=== PATIENT | male | born 1985 | race Caucasian/White ===

== ENCOUNTER 2017-10-01 12:15 | Emergency (ER) | payer MEDICAID ==
[~2017-10-01] VITALS: Ht 177.8 cm; Wt 79.4 kg
[2017-10-01 12:41] VITALS: BP 125/85
[2017-10-01 13:19] LABS: Basophils # (auto) 0 uL; Basophils % (auto) 0.8 % (0.0-2.0); Eosinophils # (auto) 0.2 uL; Eosinophils % (auto) 2.6 % (0.0-7.0); Hematocrit 48.4 % (41.0-53.0); Hemoglobin 16.4 g/dL (13.5-17.5); Lymphocytes # (auto) 2.5 uL; Mean Corpuscular Hgb Conc. 33.9 g/dL (32.0-36.0); Mean Corpuscular Volume 100.2 fL (80.0-100.0); Mean Platelet Volume 8.7 fL (6.9-10.8); Monocytes # (auto) 0.5 uL; Monocytes % (auto) 8.9 % (0.0-12.0); Neutrophils # (auto) 2.7 uL; Neutrophils % (auto) 45.7 % (37.0-80.0); Nucleated Red Blood Cells % 0.1 %; Platelet Count (auto) 232 10^3/uL (140-450); Red Cell Distribution Width 13.3 % (11.8-14.3)
[2017-10-01 13:46] LABS: Urine RBC None Seen /hpf (0 - 3)
[2017-10-01 13:50] LABS: Albumin 4.5 g/dL (3.4-5.0); Alkaline Phosphatase 69 U/L (45-117); Anion Gap 8 (5-15); Aspartate Aminotransferase 77 U/L (15-37); Bilirubin, Total 0.3 mg/dL (0.2-1.0); Blood Urea Nitrogen 8 mg/dL (7-18); Calcium 8.5 mg/dL (8.5-10.1); Carbon Dioxide 26 mmol/L (21-32); Chloride 107 mmol/L (98-107); GFR African American 144 mL/min; GFR Non-African American 119 mL/min; Glucose 90 mg/dL (74-106); Magnesium 2.6 mg/dL (1.6-2.6); Potassium 3.9 mmol/L (3.5-5.1); Sodium 141 mmol/L (136-145)
[2017-10-01 14:15] LABS: Urine Bilirubin Negative (Negative); Urine Blood Negative /uL (Negative); Urine Color Colorless (Yellow); Urine Glucose Normal (Normal); Urine Ketone Negative (Negative); Urine Nitrite Negative (Negative); Urine Urobilinogen Normal (Negative)
== END 2017-10-01 14:12 | disposition left against medical advice (07) ==
LOC: ER 12:15 → EDUNIT# 12:15 → EDBD 12:15 → ER 14:12
DX: F10.10 Alcohol abuse, uncomplicated (principal); Z53.21 Procedure and treatment not carried out due to patient leaving prior to being seen by health care provider
CPT/HCPCS: 36415; 80053; 80307; 80320; 81001; 83735; 84484; 85025; 93005

== ENCOUNTER 2018-09-02 14:39 | Emergency (ER) | payer MEDICAID ==
[~2018-09-02] VITALS: Ht 188 cm; Wt 81.6 kg
[2018-09-02 14:52] VITALS: BP 119/83
== END 2018-09-02 15:00 | disposition left against medical advice (07) ==
LOC: ER 14:42
DX: S61.411A Laceration without foreign body of right hand, initial encounter (principal); Z53.21 Procedure and treatment not carried out due to patient leaving prior to being seen by health care provider; W22.8XXA Striking against or struck by other objects, initial encounter; Y93.89 Activity, other specified; Y99.8 Other external cause status; Y92.89 Other specified places as the place of occurrence of the external cause

== ENCOUNTER 2019-05-15 12:03 | Emergency (ER) | payer MEDICAID ==
[~2019-05-15] VITALS: Ht 188 cm; Wt 72.6 kg
[2019-05-15] MEDS ORDERED: SODIUM CHLORIDE 0.9% 1,000 ML IV ONE ×2 (12:18)
[2019-05-15] MEDS ORDERED: THIAMINE 100mg/ml INJ (200mg/2ml VIAL) IV ONE (12:30)
[2019-05-15] MEDS ORDERED: NICOTINE 21MG/24 HR TOPICAL PATCH TD ONE (14:00)
[2019-05-15 14:20] VITALS: BP 100/69
== END 2019-05-15 15:51 | disposition home or self-care (01) ==
LOC: ER 12:03
DX: E86.0 Dehydration (principal); F17.210 Nicotine dependence, cigarettes, uncomplicated; F12.90 Cannabis use, unspecified, uncomplicated; Z59.0 Homelessness
CPT/HCPCS: 70450; 96361; 96374; 99284; J3411; J7030

== ENCOUNTER 2022-11-30 22:28 | Emergency (ER) | payer MEDICAID ==
[~2022-11-30] VITALS: Ht 188 cm; Wt 73.0 kg
[2022-11-30] MEDS ORDERED: KETOROLAC TROMETH 60MG/2ML VIAL IM ONE (23:00)
[2022-11-30] MEDS ORDERED: TETANUS-DIPTH-ACEL PERTUSSIS 0.5ML SYR Tdap IM ONE (23:00)
[2022-12-01] MEDS ORDERED: IBUP800T27 PO (01:30)
[2022-12-01 03:08] VITALS: BP 116/82
== END 2022-12-01 03:10 | disposition home or self-care (01) ==
LOC: ER 22:28
DX: M54.16 Radiculopathy, lumbar region (principal); M54.12 Radiculopathy, cervical region; F17.210 Nicotine dependence, cigarettes, uncomplicated; Z59.00 Homelessness unspecified
CPT/HCPCS: 72040; 72100; 90471; 90715; 96372; 99284; J1885

== ENCOUNTER 2024-10-08 19:43 | Emergency (ER) | payer MEDICAID ==
[~2024-10-08] VITALS: Ht 185.4 cm; Wt 73.0 kg
[~2024-10-08 19:43] MED LIST: IBUP-1456 PO
[2024-10-08 19:52] VITALS: BP 123/86; PULSE 110; RESP 16; O2SAT 100
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
== END 2024-10-08 22:57 | disposition home or self-care (01) ==
LOC: ER 19:43 → EDBD 19:43 → ER 22:57
DX: F10.129 Alcohol abuse with intoxication, unspecified (principal); F14.10 Cocaine abuse, uncomplicated; F17.210 Nicotine dependence, cigarettes, uncomplicated; F15.90 Other stimulant use, unspecified, uncomplicated; Z79.1 Long term (current) use of non-steroidal anti-inflammatories (NSAID); Z79.899 Other long term (current) drug therapy; Z59.00 Homelessness unspecified; Y90.9 Presence of alcohol in blood, level not specified

== ENCOUNTER 2024-10-13 20:30 | Emergency (ER) | payer MEDICAID ==
[~2024-10-13] VITALS: Ht 185.4 cm; Wt 77.2 kg
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
[2024-10-13 22:01] LABS: Albumin 4.5 g/dL (3.2-4.8); Alkaline Phosphatase 106 U/L (46-116); Anion Gap 13 (5-15); Aspartate Aminotransferase 38 U/L (13-40); BUN/Creatinine Ratio 12.2 (10.0-20.0); Blood Alcohol 274.7 mg/dL (<10); Blood Urea Nitrogen 10 mg/dL (9-23); Calcium 9.8 mg/dL (8.7-10.4); Carbon Dioxide 22 mmol/L (20-31); Sodium 144 mmol/L (136-145); Total Protein 6.9 g/dL (5.7-8.2)
--- NOTE | 2024-10-13 22:01 | DVH ---
EXAM: XY CHEST XRAY 1 VIEW TECHNIQUE: Single frontal chest radiograph CLINICAL HISTORY: chest pain COMPARISON: None Findings/Impression: Frontal chest radiograph demonstrates no acute osseous or superficial soft tissue abnormalities. The trachea is midline. The cardiac silhouette and mediastinum are within normal limits. No pneumothorax, pleural effusions, or consolidations.
[2024-10-13 22:05] LABS: Alanine Aminotransferase 48 U/L (7-40); Bilirubin, Total 0.2 mg/dL (0.2-1.0); Chloride 109 mmol/L (98-107); Creatine Kinase IFCC 281 U/L (46-171); Glucose 113 mg/dL (74-106); Potassium 3.5 mmol/L (3.5-5.1)
[2024-10-13 22:13] LABS: Basophils # (auto) 0.1 10 ^3/uL (0-0.2); Basophils % (auto) 0.5 % (0.0-2.0); Eosinophils # (auto) 0.1 10 ^3/uL (0-0.8); Hematocrit 39.8 % (41.0-53.0); Hemoglobin 13.2 g/dL (13.5-17.5); Lymphocytes # (auto) 1.8 10 ^3/uL (0.4-5.4); Lymphocytes % (auto) 15.8 % (10.0-50.0); Mean Corpuscular Hemoglobin 32.5 pg (28.0-32.0); Mean Corpuscular Hgb Conc. 33.3 g/dL (32.0-36.0); Mean Corpuscular Volume 97.6 fL (80.0-100.0); Monocytes # (auto) 0.8 10 ^3/uL (0-1.3); Monocytes % (auto) 6.9 % (0.0-12.0); Neutrophils # (auto) 8.7 10 ^3/uL (1.6-8.6); Neutrophils % (auto) 75.8 % (37.0-80.0); Platelet Count (auto) 352 10^3/uL (140-450); Red Blood Cells 4.08 10^6/uL (4.5-5.90); Red Cell Distribution Width 15.1 % (11.8-14.3); White Blood Cell 11.4 10^3/uL (4.4-10.8)
[2024-10-13 23:52] VITALS: BP 111/70; PULSE 111; RESP 18; O2SAT 98
[2024-10-14 00:01] VITALS: TEMP 98.2
[2024-10-14] MEDS: IBUPROFEN 600 MG TAB PO ONE (00:01)
--- NOTE | 2024-10-14 04:12 | ECG ---
[facility] Test Date: 2024-10-13 Test Time: 20:34:39 Pat Name: OSWALDO SANTA Department: ED Room: Gender: M Body Man: : 1985 Requested By: BRETT WHITAKER Order Number: [id number] Reading MD: Steve Anderson Measurements Intervals [place] Rate: 111 P: 0 AK: 0 QRS: 97 QRSD: 92 T: 35 QT: 314 QTc: 427 Interpretive Statements Sinus tachycardia and orJunctional tachycardia Borderline right axis deviation Left ventricular hypertrophy Electronically Signed On 10-14-2024 8:56:20 PST by Steve Anderson Please click the below link to view image of tracing.
== END 2024-10-13 23:55 | disposition home or self-care (01) ==
LOC: ER 20:30 → EDBD 20:30 → ER 23:55
DX: F10.10 Alcohol abuse, uncomplicated (principal); F14.10 Cocaine abuse, uncomplicated; R07.89 Other chest pain; F17.210 Nicotine dependence, cigarettes, uncomplicated; Z59.00 Homelessness unspecified; Z79.1 Long term (current) use of non-steroidal anti-inflammatories (NSAID); Y90.0 Blood alcohol level of less than 20 mg/100 ml
CPT/HCPCS: 36415; 71045; 80053; 80320; 82550; 84484; 85025; 93005

== ENCOUNTER 2024-10-15 15:04 | Emergency (ER) | payer MEDICAID ==
[~2024-10-15] VITALS: Ht 182.9 cm; Wt 81.7 kg
--- NOTE | 2024-10-15 17:13 | ED.PDOC ---
Psychiatric HPI Comments 39 y.o male presents to the ED via EMS for an evaluation of mental health. Patient presents with erratic behavior, word salad and hyperactive. No information is able to be obtained at this time as patient is uncooperative, hard to redirect and no family is present. Patient appears to be intoxicated and under the influence. Patient is not well kempt and dirty and appears to be homeless. Chief Complaint: Mental Health Time Seen by MD: 17:00 Primary Care Provider: UNKNOWN Reviewed Notes: Nurses Notes, Head Of Human Resources Notes, Medications, Allergies Information Source: Emergency Med Personnel Mode of Arrival: EMS Severity: Unable to Care for Self Timing: Hours Duration: Since onset Presents with: Bizarre Behavior Quality: Hallucinations Past Medical History PAST MEDICAL HISTORY: Denies Surgical History: Denies all surgeries Family History Family History: Family hx of DM Social History Smoker: Cigarettes Alcohol: Heavy Drugs: Cocaine, Marijuana, Methamphetamine Lives In: Homeless Constitutional: denies: chills, diaphoresis, fatigue, fever, malaise, sweats, weakness, others EENTM: denies: blurred vision, double vision, ear bleeding, ear discharge, ear drainage, ear pain, ear ringing, eye pain, eye redness, hearing loss, mouth pain, mouth swelling, nasal discharge, nose bleeding, nose congestion, nose pain, photophobia, tearing, throat pain, throat swelling, voice changes, others Respiratory: denies: cough, hemoptysis, orthopnea, SOB at rest, shortness of breath, SOB with excertion, stridor, wheezing, others Cardiovascular: denies: chest pain, dizzy spells, diaphoresis, Dyspnea on ex ertion, edema, irregular heart beat, left arm pain, lightheadedness, palpitations, PND, syncope, others Gastrointestinal: denies: abdomen distended, abdominal pain, blood streaked bowels, constipated, diarrhea, dysphagia, difficulty swallowing, hematemesis, melena, nausea, poor appetite, poor fluid intake, rectal bleeding, rectal pain, vomiting, others Genitourinary: denies: burning, dysuria, flank pain, frequency, hematuria, incontinence, penile discharge, penile sore, pain, testicle pain, testicle swelling, urgency, others Neurological: denies: dizziness, fainting, headache, left sided numbness, left sided weakness, numbness, paresthesia, pre-existing deficit, right sided numbness, right sided weakness, seizure, speech problems, tingling, tremors, weakness, others Musculoskeletal: denies: back pain, gout, joint pain, joint swelling, muscle pain, muscle stiffness, neck pain, others Integumetry: denies: bruises, change in color, change in hair/nails, dryness, laceration, lesions, lumps, rash, wounds, others Allergic/Immunocompromised: denies: Difficulty Healing, Frequent Infections, Hives, Itching, others Hematologic/Lymphatic: denies: anemia, blood clots, easy bleeding, easy bruising, swollen glands, others Endocrine: denies: excessive hunger, excessive sweating, excessive thirst, excessive urination, flushing, intolerance to cold, intolerance to heat, unexplained weight gain, unexplained weight loss, others Psychiatric: denies: anxiety, bipolar disorder, depression, hopeless, panic disorder, schizophrenia, sleepless, suicidal, others Unable to Obtain due to: Altered Mental Status, Other (patient is uncooperative and appears to be on illicit drugs and smells like alcohol.) Physical Exam General Appearance: Moderate Distress (Patient is combative disoriented.), No rmal HEENT: Pharynx Normal, TMs Normal Neck: Full Range of Motion, Normal, Normal Inspection Respiratory: Chest Non-Tender, Lungs Clear, No Accessory Muscle Use, No Respiratory Distress Cardiovascular: No Edema, No JVD, No Murmur, No Gallop, Regular Rate/Rhythm Breast Exam: Deferred Gastrointestinal: No Pulsatile Mass, Normal Bowel Sounds, Soft Genitalia: Deferred Pelvic: Deferred Rectal: Deferred Extremities: No calf tenderness, Normal capillary refill, Non-tender Neurologic: Alert, No Motor Deficits, No Sensory Deficits Cerebellar Function: NOT DONE Reflexes: NOT DONE Skin: Other (Dirty with wounds on lower and upper extremities.) Lymphatic: No Adenopathy Was a procedure done? Was a procedure done?: No Psych Differential Dx Psych. Differential Dx: Other (Illicit drug use, alcohol abuse, homelessness, psychosis) X-Ray, Labs, Meds, VS Vital Signs Date Time Temp Pulse Resp B/P (MAP) Pulse Ox O2 Delivery O2 Flow Rate FiO2 10/15/24 15:40 97.7 140 16 110/72 (85) 98 Lab Test 10/15/24 18:29 Range/Units White Blood Count 11.4 H 4.4-10.8 10^3/uL Red Blood Count 4.00 L 4.5-5.90 10^6/uL Hemoglobin 13.2 L 13.5-17.5 g/dL Hematocrit 39.5 L 41.0-53.0 % Mean Corpuscular Volume 98.8 80.0-100.0 fL Mean Corpuscular Hemoglobin 33.1 H 28.0-32.0 pg Mean Corpuscular Hemoglobin Concent 33.5 32.0-36.0 g/dL Red Cell Distribution Width 15.2 H 11.8-14.3 % Platelet Count 364 140-450 10^3/uL Mean Platelet Volume 8.1 6.9-10.8 fL Neutrophils (%) (Auto) 75.2 37.0-80.0 % Lymphocytes (%) (Auto) 15.3 10.0-50.0 % Monocytes (%) (Auto) 8.4 0.0-12.0 % Eosinophils (%) (Auto) 0.7 0.0-7.0 % Basophils (%) (Auto) 0.4 0.0-2.0 % Neutrophils # (Auto) 8.6 1.6-8.6 10 ^3/uL Lymphocytes # (Auto) 1.7 0.4-5.4 10 ^3/uL Monocytes # (Auto) 1.0 0-1.3 10 ^3/uL Eosinophils # (Auto) 0.1 0-0.8 10 ^3/uL Basophils # (Auto) 0.1 0-0.2 10 ^3/uL Nucleated Red Blood Cells 0.1 % Sodium Level 143 136-145 mmol/L Potassium Level 4.2 3.5-5.1 mmol/L Chloride Level 108 H 98-107 mmol/L Carbon Dioxide Level 25 20-31 mmol/L Anion Gap 10 5-15 Blood Urea Nitrogen 7 L 9-23 mg/dL Creatinine 0.82 0.700-1.30 mg/dL Glomerular Filtration Rate Calc 115 >90 mL/min BUN/Creatinine Ratio 8.5 L 10.0-20.0 Serum Glucose 103 74-106 mg/dL Lactic Acid Level 1.2 0.4-2.0 mmol/L Calcium Level 9.4 8.7-10.4 mg/dL Lipase 44 12-53 U/L Plasma/Serum Blood Alcohol 162.3 H <10 mg/dL X-Ray, Labs, Meds, VS Comment All studies performed the ED were evaluated by me personally. Patient appears to be intoxicated and under the influence. Patient will be given fluids and stabilized prior to discharge. Time of 1ST Reevaluation: 19:59 Reevaluation 1ST: Improved Consultation: PCP Patient Education/Counseling: Diagnosis, Treatment, Other Family Education/Counseling: Diagnosis, Treatment, No Family Present Departure 1 Departure Time of Disposition: 19:59 Impression: Primary Impression: Illicit drug use Additional Impression: Alcohol abuse Disposition: 30 STILL A PATIENT Condition: Fair Discharged With: Self Critical Care Note Critical Care Time?: No Stability Stability form required: No I personally scribed for HIMA LEIJA PAC ([email or web address]) on 10/15/24 at 17:13. Electronically submitted by Sandra Cabrera ([email or web address]). HIMA LEIJA PAC Oct 15, 2024 17:13
[2024-10-15 18:50] LABS: Basophils # (auto) 0.1 10 ^3/uL (0-0.2); Basophils % (auto) 0.4 % (0.0-2.0); Eosinophils # (auto) 0.1 10 ^3/uL (0-0.8); Eosinophils % (auto) 0.7 % (0.0-7.0); Hematocrit 39.5 % (41.0-53.0); Hemoglobin 13.2 g/dL (13.5-17.5); Lymphocytes # (auto) 1.7 10 ^3/uL (0.4-5.4); Lymphocytes % (auto) 15.3 % (10.0-50.0); Mean Corpuscular Hemoglobin 33.1 pg (28.0-32.0); Mean Corpuscular Hgb Conc. 33.5 g/dL (32.0-36.0); Mean Corpuscular Volume 98.8 fL (80.0-100.0); Monocytes % (auto) 8.4 % (0.0-12.0); Neutrophils # (auto) 8.6 10 ^3/uL (1.6-8.6); Neutrophils % (auto) 75.2 % (37.0-80.0); Nucleated Red Blood Cells % 0.1 %; Platelet Count (auto) 364 10^3/uL (140-450); Red Cell Distribution Width 15.2 % (11.8-14.3); White Blood Cell 11.4 10^3/uL (4.4-10.8)
[2024-10-15 19:16] LABS: Potassium 4.2 mmol/L (3.5-5.1); Sodium 143 mmol/L (136-145)
[2024-10-15 19:17] LABS: Anion Gap 10 (5-15); Calcium 9.4 mg/dL (8.7-10.4); Carbon Dioxide 25 mmol/L (20-31)
[2024-10-15 19:18] LABS: Chloride 108 mmol/L (98-107)
[2024-10-15 19:22] LABS: BUN/Creatinine Ratio 8.5 (10.0-20.0); Blood Alcohol 162.3 mg/dL (<10); Glucose 103 mg/dL (74-106)
[2024-10-15 19:29] LABS: Blood Urea Nitrogen 7 mg/dL (9-23)
[2024-10-15 19:40] LABS: Lipase 44 U/L (12-53)
[2024-10-16] MEDS: MAALOX PLUS or MAALOX 30 ML PO ONE (02:47)
[2024-10-16] MEDS: NALOXONE HCL 0.4 MG/ML VIAL IV ONE (03:08)
[2024-10-16] MEDS: SODIUM CHLORIDE 0.9% 2,000 ML IV ONE (03:08)
[2024-10-16] MEDS: ONDANSETRON HCL 4 MG/2 ML VIAL IV ONE (03:08)
[2024-10-16 03:09] VITALS: BP 117/70; PULSE 82; RESP 16; TEMP 98.7; O2SAT 96
== END 2024-10-16 03:13 | disposition still patient (30) ==
LOC: ER 15:04 → EDUNIT# 15:04 → EDBD 15:04 → ER 10-16 03:12
DX: F10.10 Alcohol abuse, uncomplicated (principal); F12.10 Cannabis abuse, uncomplicated; F15.10 Other stimulant abuse, uncomplicated; F14.10 Cocaine abuse, uncomplicated; F17.210 Nicotine dependence, cigarettes, uncomplicated; Z59.00 Homelessness unspecified; Y90.6 Blood alcohol level of 120-199 mg/100 ml
CPT/HCPCS: 36415; 80048; 80320; 83605; 83690; 85025

== ENCOUNTER 2024-10-23 15:31 | Inpatient (IN) | payer MEDICAID, OTHER ==
[~2024-10-23] VITALS: Ht 177.8 cm; Wt 74.8 kg
[2024-10-23] MEDS: THIAMINE 100mg/ml INJ (200mg/2ml VIAL) IV ONE (16:00)
[2024-10-23] MEDS: CLINDAMYCIN 600MG IV 50 ML IV ONE (16:00)
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
[2024-10-23] MEDS: cefTRIAXone 1GM/50ML D5W 50 ML IV ONE (16:19)
[2024-10-23] MEDS: SODIUM CHLORIDE 0.9% 1,000 ML IV ONE (16:19)
[2024-10-23 17:00] LABS: Basophils # (auto) 0 10 ^3/uL (0-0.2); Basophils % (auto) 0.3 % (0.0-2.0); Eosinophils # (auto) 0.1 10 ^3/uL (0-0.8); Eosinophils % (auto) 0.4 % (0.0-7.0); Hematocrit 39.8 % (41.0-53.0); Hemoglobin 13.5 g/dL (13.5-17.5); Lymphocytes # (auto) 1.8 10 ^3/uL (0.4-5.4); Lymphocytes % (auto) 13.2 % (10.0-50.0); Mean Corpuscular Hemoglobin 32.7 pg (28.0-32.0); Mean Corpuscular Hgb Conc. 33.9 g/dL (32.0-36.0); Mean Corpuscular Volume 96.3 fL (80.0-100.0); Monocytes # (auto) 0.8 10 ^3/uL (0-1.3); Monocytes % (auto) 5.9 % (0.0-12.0); Neutrophils # (auto) 10.7 10 ^3/uL (1.6-8.6); Neutrophils % (auto) 80.2 % (37.0-80.0); Platelet Count (auto) 369 10^3/uL (140-450); Red Blood Cells 4.13 10^6/uL (4.5-5.90); Red Cell Distribution Width 14.7 % (11.8-14.3); White Blood Cell 13.4 10^3/uL (4.4-10.8)
[2024-10-23 17:09] LABS: Anion Gap 11 (5-15); Carbon Dioxide 25 mmol/L (20-31); Chloride 102 mmol/L (98-107); Potassium 3.6 mmol/L (3.5-5.1); Sodium 138 mmol/L (136-145)
[2024-10-23 17:10] LABS: Calcium 9.9 mg/dL (8.7-10.4)
[2024-10-23 17:15] LABS: BUN/Creatinine Ratio 20.5 (10.0-20.0); Blood Urea Nitrogen 16 mg/dL (9-23); Glucose 90 mg/dL (74-106)
[2024-10-23 18:03] LABS: Urine Bacteria None Seen /hpf (None Seen)
[2024-10-23 18:17] LABS: Urine Blood Negative /uL (Negative); Urine Clarity Clear (Clear); Urine Color Yellow (Yellow); Urine Mucus FEW (None Seen); Urine Protein, UAD Negative (Negative); Urine Specific Gravity 1.025 (1.001-1.035); Urine Squamous Epithelial Cell FEW /hpf (<5); Urine Urobilinogen Normal (Negative); Urine WBC 1 /hpf (0 - 3); Urine pH 5.5 (5.0-9.0)
[2024-10-23] MEDS ORDERED: ACETAMINOPHEN 325 MG TAB PO PRN (21:45)
[2024-10-23] MEDS ORDERED: ONDANSETRON HCL 4 MG/2 ML VIAL IV PRN (21:45)
[2024-10-23] MEDS: ASCORBIC ACID 500 MG TAB PO SCH (23:19)
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
[2024-10-23] MEDS ORDERED: NITROGLYCERIN 0.4 MG SL TAB SL PRN (23:30)
[2024-10-23] MEDS ORDERED: MORPHINE SULFATE INJ 2 MG/ml SYRG IV PRN (23:30)
[2024-10-24] MEDS: SODIUM CHLORIDE 0.9% 1,000 ML IV SCH (00:28)
[2024-10-24 06:16] LABS: Basophils # (auto) 0 10 ^3/uL (0-0.2); Basophils % (auto) 0.4 % (0.0-2.0); Eosinophils # (auto) 0.1 10 ^3/uL (0-0.8); Eosinophils % (auto) 1.1 % (0.0-7.0); Hematocrit 37.8 % (41.0-53.0); Lymphocytes # (auto) 1.9 10 ^3/uL (0.4-5.4); Lymphocytes % (auto) 17.6 % (10.0-50.0); Mean Corpuscular Hemoglobin 33.5 pg (28.0-32.0); Mean Corpuscular Hgb Conc. 34.3 g/dL (32.0-36.0); Mean Corpuscular Volume 97.5 fL (80.0-100.0); Monocytes # (auto) 0.9 10 ^3/uL (0-1.3); Monocytes % (auto) 8.6 % (0.0-12.0); Neutrophils # (auto) 7.8 10 ^3/uL (1.6-8.6); Neutrophils % (auto) 72.3 % (37.0-80.0); Platelet Count (auto) 346 10^3/uL (140-450); Red Blood Cells 3.88 10^6/uL (4.5-5.90); Red Cell Distribution Width 14.9 % (11.8-14.3); White Blood Cell 10.8 10^3/uL (4.4-10.8)
[2024-10-24 06:26] LABS: Alanine Aminotransferase 27 U/L (7-40); Albumin 4.4 g/dL (3.2-4.8); Anion Gap 13 (5-15); Aspartate Aminotransferase 24 U/L (13-40); BUN/Creatinine Ratio 22.9 (10.0-20.0); Blood Urea Nitrogen 19 mg/dL (9-23); Calcium 9.6 mg/dL (8.7-10.4); Carbon Dioxide 21 mmol/L (20-31); Chloride 106 mmol/L (98-107); Potassium 3.6 mmol/L (3.5-5.1); Sodium 140 mmol/L (136-145)
[2024-10-24 06:27] LABS: Total Protein 7.3 g/dL (5.7-8.2)
[2024-10-24 06:39] LABS: Alkaline Phosphatase 117 U/L (46-116); Bilirubin, Total 0.2 mg/dL (0.2-1.0); Glucose 133 mg/dL (74-106)
[2024-10-24] MEDS: CLINDAMYCIN 600MG IV 50 ML IV SCH (06:42)
[2024-10-24 09:05] VITALS: BP 144/85; PULSE 110; RESP 16; TEMP 97.9; O2SAT 98
[2024-10-24] MEDS: DOCUSATE SOD 100 MG CAP PO PRN (09:54)
[2024-10-24] MEDS: ZINC SULFATE 220mg CAP or TAB PO SCH (09:54)
[2024-10-24] MEDS: THIAMINE HCL 100 MG TAB PO SCH (09:55)
[2024-10-24] MEDS: HYDROcodone-ACET 5/325MG TAB PO PRN (09:55)
[2024-10-24 10:02] VITALS: BP 144/85; PULSE 110; RESP 16; TEMP 97.9; O2SAT 98
[2024-10-24 13:00] VITALS: BP 131/84; PULSE 84; RESP 16; TEMP 97.8; O2SAT 98
[2024-10-24] MEDS: MORPHINE SULFATE INJ 2 MG/ml SYRG IV PRN (13:08)
[2024-10-24] MEDS: cefTRIAXone 1GM/50ML D5W 50 ML IV SCH (15:15)
[2024-10-24 17:04] VITALS: BP 132/84; PULSE 99; RESP 16; TEMP 97.6; O2SAT 95
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
[2024-10-24] MEDS: chlordiazePOXIDE HCL 5 MG CAP PO SCH (18:25)
[2024-10-24 20:00] VITALS: PULSE 87; RESP 20; O2SAT 97
[2024-10-24] MEDS: FOLIC ACID 1 MG, MULTIPLE VITAMIN 10 ML, MAGNESIUM SULF SDV 50% 8 MEQ, THIAMINE INJ 100... INJ SCH (20:32)
[2024-10-24 21:00] VITALS: BP 132/89; PULSE 87; RESP 20; TEMP 98.3; O2SAT 97
[2024-10-25] VITALS (7 sets, daily range): BP systolic 118–135; BP diastolic 64–85; PULSE 57–89; RESP 17–20; TEMP 97.4–98.8; O2SAT 98–100
[2024-10-25 01:48] LABS: Amphetamine Screen, Urine Pos (NEGATIVE); Barbiturate Scree,Urine Neg (NEGATIVE); Benzodiazephine Screen, Urine Neg (NEGATIVE); Cannabinoid Screen, Urine Pos (NEGATIVE); Cocaine Screen, Urine Neg (NEGATIVE); Opiate Scree,Urine Pos (NEGATIVE); Phencyclidine Screen, Urine Neg (NEGATIVE)
--- NOTE | 2024-10-25 09:16 | DVH ---
EXAM: CT CHST AB PEL WO CON-NO IV/ORAL History: Trauma Comparison Study: None available at time of dictation. TECHNIQUE: Multidetector CT of the chest, abdomen and pelvis was performed from lower neck to pubic s ymphysis without the use of intravenous contrast. Coronal and sagittal multiplanar reformats were per formed by the technologist on a separate workstation. Radiation Dose Information: CT Dose: CTDI volume is 6.18 mGy. Dose-length product is 492.46 mGy*cm FINDINGS: Lower neck: Normal thyroid. Lungs: Left lower lobe atelectasis. Calcified subcentimeter nodule in the left upper lobe. Central airways: Patent. Pleura: No pleural effusion or significant pneumothorax. Heart/Vascular Structures: Normal heart size. Lymph Nodes: Calcified bilateral hilar lymph nodes. Calcified mediastinal lymph nodes. No pathologic ally enlarged lymph nodes. Liver: The liver is normal in size. Normal hepatic attenuation. Gallbladder and Biliary Tree: Unremarkable. Spleen: Punctate calcifications in the spleen. Pancreas: Unremarkable. Adrenal Glands: Unremarkable. Kidneys: No renal calculi or hydronephrosis. Bladder: Unremarkable. Bowel: The stomach is unremarkable. No bowel wall thickening or dilatation. The appendix is normal. Peritoneum: No ascites or pneumoperitoneum. Lymphadenopathy: No enlarged lymph nodes. Vasculature: The visualized abdominal aorta is normal in size and caliber. Evaluation of the vascular structures is limited due to lack of intravenous contrast. Pelvic Organs: Unremarkable. Musculoskeletal: No acute osseous abnormality. Soft tissues: Unremarkable. IMPRESSION: 1. No acute finding involving chest, abdomen or pelvis. All CT scans at this medical facility are performed using dose modulation techniques as appropriate t o a performed exam including the following: Automated exposure control was utilized; adjustment of th e MA and/or KV according to patient size; and use of iterative reconstruction technique.
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
[2024-10-25] MEDS: AMPICILLIN & SULBACTAM SODIUM 3 GM in SODIUM CHL 0.9% 100 ML IV SCH (12:35)
--- NOTE | 2024-10-25 20:57 | DVH ---
Procedure: CT UPPER EXTREMITY WO CONTRAST 10/25/2024 08:44 AM Indication: right hand cellulitis, arm pain Comparison Study: None. Technique: Axial images of the right hand were obtained and reformatted in coronal and sagittal plane s. All CT scans at this medical facility are performed using dose modulation techniques as appropriate t o a performed exam including the following: Automated exposure control was utilized; adjustment of th e MA and/or KV according to patient size; and use of iterative reconstruction technique. CT Dose: CTDI volume is 7.75 mGy. Dose-length product is 322.43 mGy*cm FINDINGS: Mild ulceration seen on dorsal aspect of the 3rd PIP joint with moderate surrounding soft tissue swel ling. No definite drainable fluid collection seen in this limited unenhanced study. No cortical erosi on or lytic osseous lesion is identified. A 2 mm density is noted within the soft tissues on the radi al aspect of 3rd middle phalanx may represent soft tissue calcification or foreign body. A venous acc ess line noted on the radial aspect of the proximal forearm. The osseous structures are intact. No cortical erosion or lytic osseous lesion. Joint spaces are kong ntained. No bony proliferative or erosive change. No joint effusion. IMPRESSION: 3rd digit cellulitis with mild ulceration on the dorsal aspect of the PIP joint and a possible 2 mm f oreign body versus soft tissue calcification on the radial aspect of the 3rd middle phalanx. No drain able fluid collection noted in this limited unenhanced study. No CT signs of osteomyelitis. Further e valuation with MRI without and with IV contrast could be completed if clinically indicated.
[2024-10-26 05:00] VITALS: BP 106/79; PULSE 68; RESP 18; TEMP 97.3; O2SAT 96
[2024-10-26 08:00] VITALS: PULSE 65; RESP 20; O2SAT 98
[2024-10-26 09:00] VITALS: BP 94/64; PULSE 65; RESP 20; TEMP 97.3; O2SAT 99
[2024-10-26] MEDS: AMPICILLIN & SULBACTAM SODIUM 3 GM in SODIUM CHL 0.9% 100 ML IV SCH (09:53)
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
[2024-10-26 13:00] VITALS: BP 120/76; PULSE 90; RESP 18; TEMP 97.8; O2SAT 100
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
[2024-10-26 17:00] VITALS: BP 105/57; PULSE 66; RESP 18; TEMP 97.8; O2SAT 100
[2024-10-27 01:00] VITALS: BP 117/78; PULSE 80; RESP 18; O2SAT 98
[2024-10-27 09:00] VITALS: BP 119/84; PULSE 69; RESP 20; TEMP 98.3; O2SAT 98
[2024-10-27 13:00] VITALS: BP 107/65; PULSE 61; RESP 18; TEMP 98.1; O2SAT 95
--- NOTE | 2024-10-27 13:14 | DVHPN2 ---
Progress Note - Dictate Date Seen: Oct 27, 2024 Medical Necessity Reason Pt with a Central, PICC or Fol: No Subjective Patient was lying comfortably in bed during my evaluation reports some improvement of his pain to his right middle finger since being started on antibiotics but continues to have a lot of swelling and stiffness to that pain. Patient is otherwise feeling well denying any changes as well as any other complaints or concerns during my evaluation. vital signs Vital Sign Date Time Temp Pulse Resp B/P (MAP) Pulse Ox O2 Delivery O2 Flow Rate FiO2 10/27/24 09:41 69 20 119/84 10/27/24 09:00 98.3 98 98.3 10/27/24 08:15 Room Air* 0 21 Total Intake and Output 10/26/24 10/26/24 10/27/24 15:00 23:00 07:00 Intake Total 580 ml 1520 ml 2100 ml Output Total 1000 ml 1600 ml Balance 580 ml 520 ml 500 ml medications Current Medications Medications Dose Ordered Sig/Kalyn Route Start Time Stop Time Status Last Admin Dose Admin Thiamine HCl 100 mg DAILY PO 10/24/24 10:00 10/27/24 08:40 100 MG Acetaminophen/ Hydrocodone Bitart 1 tab Q4HP PRN PO 10/23/24 21:45 10/27/24 11:58 1 TAB Ondansetron HCl 4 mg Q4HP PRN IV 10/23/24 21:45 Docusate Sodium 100 mg BIDPRN PRN PO 10/23/24 21:45 10/24/24 09:54 100 MG Zinc Sulfate 220 mg DAILY PO 10/24/24 10:00 10/27/24 08:40 220 MG Ascorbic Acid 500 mg BID PO 10/23/24 22:00 10/27/24 08:40 500 MG Acetaminophen 650 mg Q6HP PRN PO 10/23/24 21:45 Morphine Sulfate 2 mg Q4HPRN PRN IV 10/23/24 21:45 10/27/24 08:41 2 MG Nitroglycerin 0.4 mg Q5MINP PRN SL 10/23/24 23:30 Morphine Sulfate 2 mg Q30M PRN IV 10/23/24 23:30 Lorazepam 0.5 mg Q6HP PRN IV 10/24/24 17:15 Chlordiazepoxide HCl 10 mg QID PO 10/24/24 18:00 10/27/24 11:58 10 MG Ampicillin Sodium/ Sulbactam Sodium 3 gm/Sodium Chloride 100 ml @ 100 mls/hr Q6H IV 10/26/24 08:00 10/27/24 08:40 100 MLS/HR objective General appearance: A&O x4 in no acute distress but with slurred speech HEENT: Normal ENT inspection, pharynx normal, TMs normal Neck: Full range of motion, nontender, normal inspection Respiratory: Chest nontender, without accessory muscle use, no respiratory distress Cardiovascular: No edema, no JVD, normal peripheral pulses Gastrointestinal: Soft, nontender, no organomegaly. Musculoskeletal: Right middle finger swelling and open wound with some drainage at the PIP joint, normal capillary refill, no distal edema, neurovascularly intact. Skin: Dry, normal color, warm Lymphatic: No adenopathy laboratory and microbiology Laboratory Tests 10/24/24 05:27 Test 10/24/24 05:27 Range/Units Serum Glucose 133 H 74-106 mg/dL Assessment/Plan Right middle finger PIP cellulitis I had a lengthy discussion with the patient regarding nonoperative versus operative management and after discussing his case with Dr. Sesay and given that he is unable to have an MRI as he reports that he has a metal christiana in his leg we have recommended an I and D of his right middle finger given his continued swelling and stiffness. I discussed all of the risks and complications involved with surgery including but not limited to bleeding, infection, nerve injury, chronic pain, nonunion, malunion, need for further surgery, blood clots, DVT, PE, cardiac and pulmonary complications, and even . He understood and agreed to proceed with the surgery. We will plan to undergo surgery tomorrow afternoon if schedule allows and patient remains medically stable. Thank you for allowing us to participate in the care of your patient. Dietary Evaluation Review Comments: 1) Consider MATTHEW 1 pkt BID for wound. 2) Continue current plan of care Expected Outcomes/Goals: 1) F/U in 3-5 days Plan discussed with: Patient ARTHUR,JENFRANCISCO JAVEIR MICHAELS Oct 27, 2024 13:14
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
--- NOTE | 2024-10-27 16:39 | DVH ---
EXAM: XY CHEST PORTABLE TECHNIQUE: Single frontal chest radiograph CLINICAL HISTORY: PRE-OP COMPARISON: XY CHEST XRAY 1 VIEW on DOS: 10/13/24 Findings/Impression: Frontal chest radiograph demonstrates no acute osseous or superficial soft tissue abnormalities. The trachea is midline. The cardiac silhouette and mediastinum are within normal limits. No pneumothorax, pleural effusions, or consolidations.
[2024-10-27 17:00] VITALS: BP 108/71; PULSE 69; RESP 18; TEMP 97.7; O2SAT 97
[2024-10-27 20:00] VITALS: PULSE 79
[2024-10-27 21:00] VITALS: BP 107/71; PULSE 79; RESP 17; TEMP 98.5; O2SAT 98
[2024-10-28] VITALS (8 sets, daily range): BP systolic 104–112; BP diastolic 68–72; PULSE 54–70; RESP 12–18; TEMP 97.4–98.1; O2SAT 97–99
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
[2024-10-28] MEDS ORDERED: KETAMINE 50mg/ML 1ml syringe ONE (12:06)
[2024-10-28] MEDS ORDERED: PROPOFOL 10 MG/ML 20 ML IV ONE (12:06)
[2024-10-28] MEDS ORDERED: MEPERIDINE HCL (25 MG/ML) 1ML VIAL ONE (12:06)
[2024-10-28] MEDS ORDERED: MIDAZOLAM HCL 2MG/2ML 2ml VIAL (1mg/ml) ONE (12:06)
[2024-10-28] MEDS ORDERED: LIDOCAINE 1% INJ PF 5ML AMP ONE (12:06)
[2024-10-28] MEDS ORDERED: fentaNYL CITRATE 100 MCG/2 ML VL ONE (12:12)
[2024-10-28] MEDS ORDERED: fentaNYL CITRATE 100 MCG/2 ML VL IV PRN (12:15)
[2024-10-28] MEDS: KETOROLAC TROMETH 30 MG/ML 1ML VIAL IV ONE (12:15)
[2024-10-28] MEDS: METOCLOPRAMIDE HCL 5MG/ml INJ 2ml VIAL IV ONE (12:15)
[2024-10-28] MEDS ORDERED: HYDROmorphone HCL 2 MG/ML VL/or syr IV PRN ×3 (12:15)
[2024-10-28] MEDS ORDERED: MORPHINE SULFATE INJ 2 MG/ml SYRG IV PRN (12:15)
--- NOTE | 2024-10-28 13:06 | DVHOP2 ---
Operative Report - 2 Report Details Date: 10/28/24 Preop Diagnosis: Right middle finger cellulitis Postop Diagnosis: Right middle finger PIP joint septic arthritis Surgeon: Dirk Sesay MD Still Tender: Jero Wilson, Physician Still Tender Anesthesiologist: Dr Crowder Anesthesia: Mac Implant: None Consent: The patient was informed of the risks and benefits of the procedure. These include but are not limited to complications of anesthesia, postoperative infection, incomplete relief of symptoms, recurrence of symptoms, damage to blood vessels, nerves and tendons, deep venous thrombosis, pulmonary embolism and possible need for repeat surgery in the future. Complications: None Estimated Blood Loss: Less than 10 mL Findings: 2 cc Pus in PIP joint Indications for Surgery: The patient is a 39-year-old male who presented to the emergency room with a history of pain and swelling right middle finger. Clinical and radiological evaluation was suggestive of cellulitis. MRI was recommended but he could not get it due to a tibial nail. Nonoperative and operative management options were discussed. Due to continued swelling, inability to move the PIP joint, concern for septic arthritis, deep abscess was considered. He also had a splinter lodged. CT scan failed to show the splinter. Benefits, risks and treatment alternatives were discussed. Specific complications of the surgery such as neurovascular injury, infection, arthrofibrosis, loss of limb or life were discu ssed. The patient decided to proceed with the surgical option. Name of Procedure Performed Right middle finger proximal interphalangeal joint incision and drainage, irrigation and debridement Procedure Details Procedure Details: The patient was identified in the preoperative holding area and the surgical site was marked. The consent was verified. He was brought into the operating room and placed supine on the operating table. General anesthesia was administered. Intravenous antibiotics were given. The extremity was prepped and draped in the usual sterile manner. A time-out was called to confirm the anterior patient, the nature of surgery, the site of surgery, the availability of implants and x-rays and allergies to medications. Small sinus was noted with along with the scar on the proximal interphalangeal joint along with significant swelling and cellulitis. An incision was made. A transverse incision through the crease of the PIP joint was made. The scar was removed. Very minimal pus was noted. Extensor tendon and retinaculum was completely damaged and necrotic. This was debrided. Excisional debridement was performed. Metzenbaum scissors and pickups were used. The PIP joint was completely exposed. The capsule was also damage. Irrigation was given. There was no tissue to repair or closed over the PIP joint. The skin was closed with 4-0 nylon. A volar splint was applied in functional position. Condition Good Disposition Still a Patient DIRK SESAY MD Oct 28, 2024 13:06
[2024-10-28] MEDS: BUPIVACAINE 0.5% P/F INJ 10 ML VIAL ONE (13:33)
[2024-10-29] VITALS (7 sets, daily range): BP systolic 100–125; BP diastolic 54–93; PULSE 59–75; RESP 16–20; TEMP 96.7–98.2; O2SAT 98–100
--- NOTE | 2024-10-29 07:48 | DVHPN2 ---
Progress Note - Dictate Date Seen: Oct 29, 2024 Medical Necessity Reason Pt with a Central, PICC or Fol: No Subjective Patient was lying comfortably in bed during my evaluation reports some improvement of his pain to his right middle finger since surgery and reports that he is able to move it a little bit better today than he was yesterday. Patient is otherwise feeling well denying any changes as well as any other complaints or concerns during my evaluation. vital signs Vital Sign Date Time Temp Pulse Resp B/P (MAP) Pulse Ox O2 Delivery O2 Flow Rate FiO2 10/29/24 05:00 97.6 59 17 100/54 (69) 98 97.6 10/28/24 20:00 Room Air* 0 21 Total Intake and Output 10/28/24 10/28/24 10/29/24 15:00 23:00 07:00 Intake Total 125 ml 450 ml 1140 ml Output Total 900 ml 1800 ml Balance 125 ml -450 ml -660 ml medications Current Medications Medications Dose Ordered Sig/Kalyn Route Start Time Stop Time Status Last Admin Dose Admin Thiamine HCl 100 mg DAILY PO 10/24/24 10:00 10/27/24 08:40 100 MG Acetaminophen/ Hydrocodone Bitart 1 tab Q4HP PRN PO 10/23/24 21:45 10/29/24 02:24 1 TAB Ondansetron HCl 4 mg Q4HP PRN IV 10/23/24 21:45 Docusate Sodium 100 mg BIDPRN PRN PO 10/23/24 21:45 10/24/24 09:54 100 MG Zinc Sulfate 220 mg DAILY PO 10/24/24 10:00 10/27/24 08:40 220 MG Ascorbic Acid 500 mg BID PO 10/23/24 22:00 10/28/24 21:11 500 MG Acetaminophen 650 mg Q6HP PRN PO 10/23/24 21:45 Morphine Sulfate 2 mg Q4HPRN PRN IV 10/23/24 21:45 10/28/24 21:55 2 MG Nitroglycerin 0.4 mg Q5MINP PRN SL 10/23/24 23:30 Morphine Sulfate 2 mg Q30M PRN IV 10/23/24 23:30 Lorazepam 0.5 mg Q6HP PRN IV 10/24/24 17:15 Chlordiazepoxide HCl 10 mg QID PO 10/24/24 18:00 10/29/24 05:18 10 MG Ampicillin Sodium/ Sulbactam Sodium 3 gm/Sodium Chloride 100 ml @ 100 mls/hr Q6H IV 10/26/24 08:00 10/29/24 02:04 100 MLS/HR objective A&O x4 in no acute distress Hand range of motion not fully evaluated as patient remains in volar splint Dressing clean, dry, and intact No distal edema or calf tenderness to palpation Neurovascularly intact with cap refill less than 2 seconds laboratory and microbiology Laboratory Tests 10/24/24 05:27 Test 10/24/24 05:27 Range/Units Serum Glucose 133 H 74-106 mg/dL Assessment/Plan Right middle finger PIP cellulitis Continue current management as well as pain control and antibiotics and advised patient to maintain his dressings clean, dry, and intact and to change dressings every other day. Advised patient to follow up with our office in 10-14 days once he has been discharged home for further evaluation and continued treatment. We also recommend patient continue with follow-up with infectious disease specialist for antibiotics. Patient understood and agreed. Thank you for allowing us to participate in the care of the patient Dietary Evaluation Review Comments: 1) Consider MATTHEW 1 pkt BID for wound. 2) Continue current plan of care Expected Outcomes/Goals: 1) F/U in 3-5 days Plan discussed with: Patient ENRIQUE ARTHUR Oct 29, 2024 07:48
--- NOTE | 2024-10-29 10:42 | ECG ---
[facility] Test Date: 2024-10-28 Test Time: 12:16:49 Pat Name: OSWALDO SANTA Department: Room: 0250 B Gender: M Group Activities Aide: JAYLEN : 1985 Requested By: MITA TURCIOS Order Number: [id number] Reading MD: Clarita Griffiths Measurements Intervals [place] Rate: 46 P: 198 MA: 234 QRS: 78 QRSD: 96 T: 64 QT: 427 QTc: 374 Interpretive Statements Sinus or ectopic atrial bradycardia Prolonged MA interval Left ventricular hypertrophy ST elev, probable normal early repol pattern Tall T, consider metabolic/ischemic abnrm Electronically Signed On 11-01-2024 10:18:39 PST by Clarita Griffiths Please click the below link to view image of tracing.
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
[2024-10-30] VITALS (7 sets, daily range): BP systolic 100–122; BP diastolic 65–73; PULSE 65–83; RESP 16–19; TEMP 97.1–98.8; O2SAT 98–100
[2024-10-30 06:30] LABS: Basophils # (auto) 0.1 10 ^3/uL (0-0.2); Basophils % (auto) 1.3 % (0.0-2.0); Eosinophils # (auto) 0.2 10 ^3/uL (0-0.8); Eosinophils % (auto) 3.5 % (0.0-7.0); Hematocrit 39.7 % (41.0-53.0); Hemoglobin 13.1 g/dL (13.5-17.5); Lymphocytes # (auto) 1.8 10 ^3/uL (0.4-5.4); Lymphocytes % (auto) 35.6 % (10.0-50.0); Mean Corpuscular Hemoglobin 32.6 pg (28.0-32.0); Mean Corpuscular Hgb Conc. 33.1 g/dL (32.0-36.0); Mean Corpuscular Volume 98.3 fL (80.0-100.0); Monocytes # (auto) 0.6 10 ^3/uL (0-1.3); Neutrophils # (auto) 2.5 10 ^3/uL (1.6-8.6); Neutrophils % (auto) 47.6 % (37.0-80.0); Nucleated Red Blood Cells % 0.1 %; Platelet Count (auto) 318 10^3/uL (140-450); Red Blood Cells 4.04 10^6/uL (4.5-5.90); White Blood Cell 5.2 10^3/uL (4.4-10.8)
[2024-10-30 07:04] LABS: Alanine Aminotransferase 23 U/L (7-40); Albumin 4.3 g/dL (3.2-4.8); Alkaline Phosphatase 85 U/L (46-116); Anion Gap 9 (5-15); Aspartate Aminotransferase 20 U/L (13-40); BUN/Creatinine Ratio 28.6 (10.0-20.0); Carbon Dioxide 25 mmol/L (20-31); Chloride 103 mmol/L (98-107); Glucose 96 mg/dL (74-106); Sodium 137 mmol/L (136-145)
[2024-10-30 07:05] LABS: Total Protein 6.9 g/dL (5.7-8.2)
[2024-10-30 07:09] LABS: Bilirubin, Total 0.2 mg/dL (0.2-1.0); Blood Urea Nitrogen 24 mg/dL (9-23)
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
[2024-10-31 05:00] VITALS: BP 115/73; PULSE 62; RESP 20; TEMP 98.2; O2SAT 100
[2024-10-31 09:00] VITALS: BP 111/63; PULSE 77; RESP 18; TEMP 97.4; O2SAT 98
[2024-10-31] MEDS ORDERED: MORPHINE SULFATE INJ 2 MG/ml SYRG ONE (09:01)
[2024-10-31 13:00] VITALS: BP 109/61; PULSE 80; RESP 18; TEMP 97.8; O2SAT 100
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
[2024-10-31 17:00] VITALS: BP 105/61; PULSE 72; RESP 18; TEMP 97.2; O2SAT 100
[2024-10-31 20:00] VITALS: PULSE 84; RESP 20; O2SAT 98
[2024-10-31 21:00] VITALS: BP 112/70; PULSE 84; RESP 20; TEMP 97.8; O2SAT 98
[2024-11-01] VITALS (8 sets, daily range): BP systolic 105–131; BP diastolic 55–68; PULSE 55–88; RESP 16–20; TEMP 97.5–98.3; O2SAT 97–100
[2024-11-01] MEDS: LORazepam 2MG/ML-1ML VIAL IV PRN (00:35)
[2024-11-01 10:40] LABS: Basophils # (auto) 0.1 10 ^3/uL (0-0.2); Basophils % (auto) 1.2 % (0.0-2.0); Eosinophils # (auto) 0.1 10 ^3/uL (0-0.8); Eosinophils % (auto) 2.8 % (0.0-7.0); Hematocrit 39.7 % (41.0-53.0); Hemoglobin 13.5 g/dL (13.5-17.5); Lymphocytes # (auto) 1.2 10 ^3/uL (0.4-5.4); Mean Corpuscular Hemoglobin 32.9 pg (28.0-32.0); Mean Corpuscular Volume 96.9 fL (80.0-100.0); Monocytes # (auto) 0.6 10 ^3/uL (0-1.3); Monocytes % (auto) 13.8 % (0.0-12.0); Neutrophils # (auto) 2.5 10 ^3/uL (1.6-8.6); Neutrophils % (auto) 56.2 % (37.0-80.0); Nucleated Red Blood Cells % 0.1 %; Platelet Count (auto) 315 10^3/uL (140-450); Red Cell Distribution Width 13.8 % (11.8-14.3); White Blood Cell 4.5 10^3/uL (4.4-10.8)
[2024-11-01 10:53] LABS: Chloride 104 mmol/L (98-107); Potassium 4.3 mmol/L (3.5-5.1); Sodium 139 mmol/L (136-145)
[2024-11-01 10:54] LABS: Anion Gap 5 (5-15); Carbon Dioxide 30 mmol/L (20-31)
[2024-11-01 11:00] LABS: BUN/Creatinine Ratio 22.5 (10.0-20.0); Blood Urea Nitrogen 20 mg/dL (9-23); Glucose 94 mg/dL (74-106)
[2024-11-02 01:00] VITALS: BP 97/52; PULSE 55; RESP 18; TEMP 97.7; O2SAT 98
[2024-11-02 05:00] VITALS: BP 98/53; PULSE 73; RESP 18; TEMP 98; O2SAT 95
[2024-11-02 07:47] VITALS: RESP 16
[2024-11-02 09:00] VITALS: BP 122/69; PULSE 73; RESP 18; TEMP 97.5; O2SAT 99
[2024-11-02 13:00] VITALS: BP 111/58; PULSE 70; RESP 18; TEMP 97.9; O2SAT 100
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
[2024-11-02 17:00] VITALS: BP 120/83; PULSE 70; RESP 19; TEMP 98; O2SAT 100
== END 2024-11-02 18:00 | disposition left against medical advice (07) | DRG 710 ==
LOC: ER 15:31 → OVERFLOW 23:23 → EAST 10-24 09:05
PROVIDERS: ADMIT Internal Medicine; ATTEND Internal Medicine
PROC: 0LB70ZZ Excision of Right Hand Tendon, Open Approach (ICD-10-PCS; principal; 2024-10-28 12:54)
DX: A41.9 Sepsis, unspecified organism (principal); F10.10 Alcohol abuse, uncomplicated; L03.113 Cellulitis of right upper limb; Z53.29 Procedure and treatment not carried out because of patient's decision for other reasons; L03.011 Cellulitis of right finger; F14.90 Cocaine use, unspecified, uncomplicated; F15.90 Other stimulant use, unspecified, uncomplicated; F17.210 Nicotine dependence, cigarettes, uncomplicated; Z83.3 Family history of diabetes mellitus; Z79.899 Other long term (current) drug therapy; Z59.00 Homelessness unspecified; Y90.9 Presence of alcohol in blood, level not specified
CPT/HCPCS: 36415; 71045; 71250; 73200; 74176; 80048; 80053; 80307; 81001; 85025; 86850; 86900; 86901; 87070; 87075; 87077; 87081; 87186; 87205; 93005; G0378; J2250; J2405; J2704; J3490

== ENCOUNTER 2024-11-03 00:20 | Emergency (ER) | payer MEDICAID ==
[~2024-11-03] VITALS: Ht 188 cm; Wt 76.3 kg
[2024-11-03 00:49] VITALS: BP 106/72; PULSE 115; RESP 18; O2SAT 97
== END 2024-11-03 08:09 | disposition left against medical advice (07) ==
LOC: ER 00:20
DX: M79.621 Pain in right upper arm (principal); Z53.21 Procedure and treatment not carried out due to patient leaving prior to being seen by health care provider

== ENCOUNTER 2024-11-24 14:32 | Emergency (ER) | payer MEDICAID ==
[~2024-11-24] VITALS: Ht 175.3 cm; Wt 81.0 kg
[2024-11-24] MEDS: SODIUM CHLORIDE 0.9% 1,000 ML IV ONE ×2 (14:45→16:51)
--- NOTE | 2024-11-24 14:49 | ED.PDOC ---
History of Present Illness HPI Comments 39-year-old male who comes in with chief complaint of altered mental status. The patient was picked up off the streets after bystanders stated that he was acting somewhat bizarre. The patient denies any vomiting or diarrhea. There has been no fever or chills. EN route, the patient had an Accu-Chek of 96. The patient admits to drinking vodka which she uses every day as well as smoking cigarettes and some type of PCP. It was unclear if the patient was taken anything else because he is acting somewhat bizarre and difficult to understand. 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 Associated signs and symptoms Generalized weakness Past Medical History PAST MEDICAL HISTORY: Denies Surgical History: Denies all surgeries Family History Family History: Family hx of DM Social History Smoker: Cigarettes Alcohol: Heavy Drugs: Cocaine, Marijuana, Methamphetamine Lives In: Homeless Constitutional: denies: chills, diaphoresis, fatigue, fever, malaise, sweats, weakness, others EENTM: denies: blurred vision, double vision, ear bleeding, ear discharge, ear drainage, ear pain, ear ringing, eye pain, eye redness, hearing loss, mouth pain, mouth swelling, nasal discharge, nose bleeding, nose congestion, nose pain, photophobia, tearing, throat pain, throat swelling, voice changes, others Respiratory: denies: cough, hemoptysis, orthopnea, SOB at rest, shortness of breath, SOB with excertion, stridor, wheezing, others Cardiovascular: denies: chest pain, dizzy spells, diaphoresis, Dyspnea on exertion, edema, irregular heart beat, left arm pain, lightheadedness, palpitations, PND, syncope, others Gastrointestinal: denies: abdomen distended, abdominal pain, blood streaked bowels, constipated, diarrhea, dysphagia, difficulty swallowing, hematemesis, melena, nausea, poor appetite, poor fluid intake, rectal bleeding, rectal pain, vomiting, others Genitourinary: denies: burning, dysuria, flank pain, frequency, hematuria, incontinence, penile discharge, penile sore, pain, testicle pain, testicle swelling, urgency, others Neurological: denies: dizziness, fainting, headache, left sided numbness, left sided weakness, numbness, paresthesia, pre-existing deficit, right sided numbness, right sided weakness, seizure, speech problems, tingling, tremors, weakness, others Musculoskeletal: denies: back pain, gout, joint pain, joint swelling, muscle pain, muscle stiffness, neck pain, others Integumetry: denies: bruises, change in color, change in hair/nails, dryness, laceration, lesions, lumps, rash, wounds, others Allergic/Immunocompromised: denies: Difficulty Healing, Frequent Infections, Hives, Itching, others Hematologic/Lymphatic: denies: anemia, blood clots, easy bleeding, easy bruising, swollen glands, others Endocrine: denies: excessive hunger, excessive sweating, excessive thirst, excessive urination, flushing, intolerance to cold, intolerance to heat, unexplained weight gain, unexplained weight loss, others Psychiatric: reports: others (Bizarre behavior); denies: anxiety, bipolar disorder, depression, hopeless, panic disorder, schizophrenia, sleepless, suicidal Physical Exam General Appearance: Mild Distress HEENT: Pharynx Normal, TMs Normal Neck: Full Range of Motion, Non-Tender, Normal, Normal Inspection Respiratory: Chest Non-Tender, Lungs Clear, No Accessory Muscle Use, No Respiratory Distress, Normal Breath Sounds Cardiovascular: No Edema, No JVD, No Murmur, No Gallop, Normal Peripheral Pulses, Regular Rate/Rhythm Breast Exam: Deferred Gastrointestinal: No Organomegaly, Non Tender, No Pulsatile Mass, Normal Bowel Sounds, Soft Genitalia: Deferred Pelvic: Deferred Rectal: Deferred Extremities: No calf tenderness, Normal capillary refill, No pedal edema Musculoskeletal : Apperance: Normal Neurologic: lumber tripper II-XII nml as Tested, Motor Weakness, Normal Affect, No Sensory Deficits, Other (Altered mental status) Cerebellar Function: Unable to Test Reflexes: Normal Skin: Dry, Normal Color, Warm Lymphatic: No Adenopathy Was a procedure done? Was a procedure done?: No Differential Dx Considerations may include: Generalized weakness, electrolyte imbalance, dehydration X-Ray, Labs, Meds, VS Vital Signs Date Time Temp Pulse Resp B/P (MAP) Pulse Ox O2 Delivery O2 Flow Rate FiO2 11/24/24 16:20 92 20 98 Room Air* 0 21 11/24/24 16:20 97.9 92 20 95/71 (79) 98 97.9 11/24/24 14:48 97.3 123 22 142/78 (99) 100 Lab Test 11/24/24 17:35 11/24/24 15:00 Range/Units Urine Opiates Screen Pending Urine Fentanyl Screen Pending Urine Barbiturates Screen Pending Urine Phencyclidine Screen Pending Urine Amphetamines Screen Pending Urine Benzodiazepines Screen Pending Urine Cocaine Screen Pending Urine Cannabinoids Screen Pending White Blood Count 6.7 4.4-10.8 10^3/uL Red Blood Count 4.37 L 4.5-5.90 10^6/uL Hemoglobin 13.8 13.5-17.5 g/dL Hematocrit 41.7 41.0-53.0 % Mean Corpuscular Volume 95.4 80.0-100.0 fL Mean Corpuscular Hemoglobin 31.5 28.0-32.0 pg Mean Corpuscular Hemoglobin Concent 33.0 32.0-36.0 g/dL Red Cell Distribution Width 14.1 11.8-14.3 % Platelet Count 304 140-450 10^3/uL Mean Platelet Volume 8.1 6.9-10.8 fL Neutrophils (%) (Auto) 54.4 37.0-80.0 % Lymphocytes (%) (Auto) 37.5 10.0-50.0 % Monocytes (%) (Auto) 5.6 0.0-12.0 % Eosinophils (%) (Auto) 1.6 0.0-7.0 % Basophils (%) (Auto) 0.9 0.0-2.0 % Neutrophils # (Auto) 3.7 1.6-8.6 10 ^3/uL Lymphocytes # (Auto) 2.5 0.4-5.4 10 ^3/uL Monocytes # (Auto) 0.4 0-1.3 10 ^3/uL Eosinophils # (Auto) 0.1 0-0.8 10 ^3/uL Basophils # (Auto) 0.1 0-0.2 10 ^3/uL Nucleated Red Blood Cells 0.1 % Sodium Level 140 136-145 mmol/L Potassium Level 4.1 3.5-5.1 mmol/L Chloride Level 104 98-107 mmol/L Carbon Dioxide Level 26 20-31 mmol/L Anion Gap 10 5-15 Blood Urea Nitrogen 15 9-23 mg/dL Creatinine 1.00 0.700-1.30 mg/dL Glomerular Filtration Rate Calc 98 >90 mL/min BUN/Creatinine Ratio 15.0 10.0-20.0 Serum Glucose 93 74-106 mg/dL Calcium Level 9.5 8.7-10.4 mg/dL Plasma/Serum Blood Alcohol 314.3 H <10 mg/dL Current Medications Medications (Trade) Dose Ordered Sig/Kalyn Route Start Time Stop Time Status Last Admin Sodium Chloride 1,000 ml @ 1,000 mls/hr Q1H ONCE IV 11/24/24 14:45 11/24/24 15:44 DC 11/24/24 14:45 Sodium Chloride 1,000 ml @ 1,000 mls/hr Q1H ONCE IV 11/24/24 16:45 11/24/24 17:44 DC 11/24/24 16:51 IV Hep-Lock was established The patient was given a 1 L bolus of normal saline At this time, the patient's CBC and chemistry panel are within normal limits The alcohol level is 314 The urine tox is pending The patient got up and had his IV removed and the patient then walked out We did try to get social media marketing analyst to come down and help the patient to be placed but the patient has decided to leave. Time of 1ST Reevaluation: 14:49 Reevaluation 1ST: Unchanged Patient Education/Counseling: Other (The patient was acting somewhat bizarre) Family Education/Counseling: Diagnosis, Treatment, Prognosis Departure 1 Departure Time of Disposition: 18:06 Impression: Primary Impression: Alcohol abuse Additional Impressions: Cocaine abuse PCP (phencyclidine) abuse Disposition: 07 LEFT AWOL/ELOPED Condition: Fair Critical Care Note Critical Care Time?: No Stability Stability form required: No Heart Score Heart Score: Heart Score Response (Comments) Value History N/A 0 EKG N/A 0 Age N/A 0 Risk Factors N/A 0 Troponin N/A 0 Total 0 STEVE JOHNSON MD Nov 24, 2024 14:49
[2024-11-24 15:22] LABS: Basophils # (auto) 0.1 10 ^3/uL (0-0.2); Basophils % (auto) 0.9 % (0.0-2.0); Eosinophils # (auto) 0.1 10 ^3/uL (0-0.8); Eosinophils % (auto) 1.6 % (0.0-7.0); Hematocrit 41.7 % (41.0-53.0); Hemoglobin 13.8 g/dL (13.5-17.5); Lymphocytes # (auto) 2.5 10 ^3/uL (0.4-5.4); Lymphocytes % (auto) 37.5 % (10.0-50.0); Mean Corpuscular Hemoglobin 31.5 pg (28.0-32.0); Mean Corpuscular Volume 95.4 fL (80.0-100.0); Monocytes # (auto) 0.4 10 ^3/uL (0-1.3); Monocytes % (auto) 5.6 % (0.0-12.0); Neutrophils # (auto) 3.7 10 ^3/uL (1.6-8.6); Neutrophils % (auto) 54.4 % (37.0-80.0); Nucleated Red Blood Cells % 0.1 %; Platelet Count (auto) 304 10^3/uL (140-450); Red Blood Cells 4.37 10^6/uL (4.5-5.90); Red Cell Distribution Width 14.1 % (11.8-14.3); White Blood Cell 6.7 10^3/uL (4.4-10.8)
[2024-11-24 15:38] LABS: Chloride 104 mmol/L (98-107); Potassium 4.1 mmol/L (3.5-5.1); Sodium 140 mmol/L (136-145)
[2024-11-24 15:39] LABS: Anion Gap 10 (5-15); Calcium 9.5 mg/dL (8.7-10.4); Carbon Dioxide 26 mmol/L (20-31)
[2024-11-24 15:44] LABS: Blood Urea Nitrogen 15 mg/dL (9-23); Glucose 93 mg/dL (74-106)
[2024-11-24 16:01] LABS: Blood Alcohol 314.3 mg/dL (<10)
[2024-11-24 16:20] VITALS: BP 95/71; PULSE 92; RESP 20; TEMP 97.9; O2SAT 98
[2024-11-24 17:59] LABS: Amphetamine Screen, Urine Pos (NEGATIVE)
[2024-11-24 18:00] LABS: Cannabinoid Screen, Urine Pos (NEGATIVE)
[2024-11-24 18:39] LABS: Barbiturate Scree,Urine Neg (NEGATIVE); Benzodiazephine Screen, Urine Neg (NEGATIVE); Cocaine Screen, Urine Neg (NEGATIVE); Opiate Scree,Urine Neg (NEGATIVE); Phencyclidine Screen, Urine Neg (NEGATIVE)
== END 2024-11-24 20:18 | disposition left against medical advice (07) ==
LOC: ER 14:32 → EDBD 14:32 → ER 20:18
DX: F10.10 Alcohol abuse, uncomplicated (principal); F14.10 Cocaine abuse, uncomplicated; F16.10 Hallucinogen abuse, uncomplicated; F17.210 Nicotine dependence, cigarettes, uncomplicated; Z79.899 Other long term (current) drug therapy
CPT/HCPCS: 36415; 80048; 80307; 80320; 85025; 96360; 96361; 99283; J7030

== ENCOUNTER 2024-12-19 00:42 | Emergency (ER) | payer MEDICAID ==
[~2024-12-19] VITALS: Ht 182.9 cm; Wt 81.8 kg
--- NOTE | 2024-12-19 01:44 | ED.PDOC ---
History of Present Illness HPI Comments This patient is a 39-year-old male who was brought in by EMS due to alcohol intoxication. Patient was unconscious on the street when a passerby noted him and contacted EMS. Patient was highly intoxicated at arrival. Patient has a history of alcohol abuse. At time of arrival, patient states he is not intere sted in stopping alcohol use. patient is not well kempt and dirty. Patient appears to be homeless. Chief Complaint: ETOH Time Seen by MD: 00:43 Primary Care Provider: UNKNOWN Reviewed Notes: Nurses Notes, Museum Docent Notes Allergies: Coded Allergies: NO KNOWN ALLERGIES (Unverified , 08/09/15) Information Source: Patient, Emergency Med Personnel Mode of Arrival: EMS Severity: Moderate Timing: Days Duration: Since onset Prehospital treatment: None Past Medical History PAST MEDICAL HISTORY: Denies Surgical History: Denies all surgeries Family History Family History: Family hx of DM Social History Smoker: Cigarettes Alcohol: Heavy Drugs: Cocaine, Marijuana, Methamphetamine Lives In: Homeless Constitutional: denies: chills, diaphoresis, fatigue, fever, malaise, sweats, weakness, others EENTM: denies: blurred vision, double vision, ear bleeding, ear discharge, ear drainage, ear pain, ear ringing, eye pain, eye redness, hearing loss, mouth pain, mouth swelling, nasal discharge, nose bleeding, nose congestion, nose pain, photophobia, tearing, throat pain, throat swelling, voice changes, others Respiratory: denies: cough, hemoptysis, orthopnea, SOB at rest, shortness of breath, SOB with excertion, stridor, wheezing, others Cardiovascular: denies: chest pain, dizzy spells, diaphoresis, Dyspnea on exertion, edema, irregular heart beat, left arm pain, lightheadedness, palpitations, PND, syncope, others Gastrointestinal: denies: abdomen distended, abdominal pain, blood streaked bowels, constipated, diarrhea, dysphagia, difficulty swallowing, hematemesis, melena, nausea, poor appetite, poor fluid intake, rectal bleeding, rectal pain, vomiting, others Genitourinary: denies: burning, dysuria, flank pain, frequency, hematuria, incontinence, penile discharge, penile sore, pain, testicle pain, testicle swelling, urgency, others Neurological: denies: dizziness, fainting, headache, left sided numbness, left sided weakness, numbness, paresthesia, pre-existing deficit, right sided numbness, right sided weakness, seizure, speech problems, tingling, tremors, weakness, others Musculoskeletal: denies: back pain, gout, joint pain, joint swelling, muscle pain, muscle stiffness, neck pain, others Integumetry: denies: bruises, change in color, change in hair/nails, dryness, laceration, lesions, lumps, rash, wounds, others Allergic/Immunocompromised: denies: Difficulty Healing, Frequent Infections, Hi ves, Itching, others Hematologic/Lymphatic: denies: anemia, blood clots, easy bleeding, easy bruising, swollen glands, others Endocrine: denies: excessive hunger, excessive sweating, excessive thirst, excessive urination, flushing, intolerance to cold, intolerance to heat, unexplained weight gain, unexplained weight loss, others Psychiatric: denies: anxiety, bipolar disorder, depression, hopeless, panic disorder, schizophrenia, sleepless, suicidal, others Unable to Obtain due to: Altered Mental Status (Due to significant alcohol intoxication) Physical Exam General Appearance: Mild Distress ( patient was in no distress at time of evaluation. Patient was highly intoxicated at time of evaluation.), Normal HEENT: Pharynx Normal, TMs Normal, Other ( Bilateral glassy eyes. Patient displays a sunburn on his face and hands.) Neck: Full Range of Motion, Non-Tender, Normal, Normal Inspection Respiratory: Chest Non-Tender, Lungs Clear, No Accessory Muscle Use, No Respiratory Distress, Normal Breath Sounds Cardiovascular: No Edema, No JVD, No Murmur, No Gallop, Normal Peripheral Pulses, Regular Rate/Rhythm Breast Exam: Deferred Gastrointestinal: No Organomegaly, Non Tender, No Pulsatile Mass, Normal Bowel Sounds, Soft Genitalia: Deferred Pelvic: Deferred Rectal: Deferred Extremities: No calf tenderness, Normal capillary refill, Normal inspection, Normal range of motion, Non-tender, No pedal edema Neurologic: NOT DONE Cerebellar Function: NOT DONE Reflexes: NOT DONE Skin: Dry, Normal Color, Warm Lymphatic: No Adenopathy Was a procedure done? Was a procedure done?: No Differential Dx Considerations may include: Alcohol intoxication, alcohol abuse X-Ray, Labs, Meds, VS Vital Signs Date Time Temp Pulse Resp B/P (MAP) Pulse Ox O2 Delivery O2 Flow Rate FiO2 3//25 00:42 98.6 87 18 144/82 (102) 96 X-Ray, Labs, Meds, VS Comment Patient will receive some IV fluid resuscitation as well as thiamine and Zofran prior to discharge. Patient will be fed and will be allowed to leave the facility once he is improved enough for a safe discharge. Time of 1ST Reevaluation: :43 Reevaluation 1ST: Improved Consultation: PCP Patient Education/Counseling: Diagnosis, Treatment Family Education/Counseling: Diagnosis, Treatment Departure 1 Departure Time of Disposition: :43 Impression: Primary Impression: Alcohol abuse Additional Impression: Alcohol intoxication Disposition: HOME / SELF CARE / HOMELESS Condition: Stable Additional Instructions: Advised patient to cease alcohol use immediately and follow up with a an alcohol support group such as AA. Discharged With: Self Critical Care Note Critical Care Time?: No Stability Stability form required: No Heart Score Heart Score: Heart Score Response (Comments) Value History N/A 0 EKG N/A 0 Age N/A 0 Risk Factors N/A 0 Troponin N/A 0 Total 0 HIMA LEIJA PAC Dec 19, 2024 01:44
[2024-12-19 03:30] VITALS: BP 117/71; PULSE 91; RESP 18; O2SAT 96
[2024-12-19] MEDS: ONDANSETRON HCL 4 MG/2 ML VIAL IV ONE (03:56)
[2024-12-19] MEDS: SODIUM CHLORIDE 0.9% 2,000 ML IV ONE (03:56)
[2024-12-19] MEDS: THIAMINE 100mg/ml INJ (200mg/2ml VIAL) IV ONE (03:56)
== END 2024-12-19 05:12 | disposition left against medical advice (07) ==
LOC: ER 00:42 → EDBD 00:42 → ER 05:11
DX: F10.129 Alcohol abuse with intoxication, unspecified (principal); F17.210 Nicotine dependence, cigarettes, uncomplicated; Z59.00 Homelessness unspecified; Y90.9 Presence of alcohol in blood, level not specified

== ENCOUNTER 2025-01-23 17:53 | Emergency (ER) | payer MEDICAID ==
[~2025-01-23] VITALS: Ht 172.7 cm; Wt 68.1 kg
[2025-01-23 17:56] VITALS: BP 125/79; PULSE 89; RESP 24; TEMP 98.9; O2SAT 99
--- NOTE | 2025-01-23 18:42 | ED.PDOC ---
Altered Mental Status HPI Comments 39-year-old male BIBA for ETOH intoxication. Per EMS, patient was found crawling in the middle of the street by S.O. Patient currently A/Ox1, knows his name only. Patient has word salad and rambles when asking questions according to triage notes. Patient not answering or responding to painful stimuli but is sleeping on EMS gurney. Patient is unkept and homeless. Chief Complaint: ETOH Time Seen by MD: 18:40 Primary Care Provider: NONE Reviewed Notes: Medications, Allergies Allergies: Coded Allergies: NO KNOWN ALLERGIES (Unverified , 08/09/15) Information Source: Emergency Med Personnel Mode of Arrival: EMS Severity: Unable to Care for Self, Unresponsive Timing: Hours Duration: Since onset Prehospital treatment: Respiratory Equipment Assistant Quality: Decreased Alertness, Change in Behavior, Confusion Recent: None History of: None Associated Signs and Symptoms: Slurred Speech Vital Signs Vital Signs Date Time Temp Pulse Resp B/P (MAP) Pulse Ox O2 Delivery O2 Flow Rate FiO2 01/23/25 17:56 98.9 89 24 125/79 (94) 99 98.9 Physical Exam General: Patient is sleeping, difficult to arouse, disheveled with poor hygiene Skin: Skin in warm, dry and intact without rashes or lesions. HEENT: The head is normocephalic and atraumatic. Conjunctivae are clear without exudates or hemorrhage. Sclera is non-icteric. Neck: Normal range of motion. No JVD. Cardiac: Regular rate Respiratory: No signs of respiratory distress. No Stridor. Extremities: Upper and lower extremities are atraumatic in appearance without deformity. Neurological: The patient is sleeping, difficult to arouse. Patient noted to turn over and adjust himself in exam bed. Psychiatric: Appropriate mood and affect. Good judgement and insight. Review of Systems: Unable to obtain due to altered mental status Past Medical History PAST MEDICAL HISTORY: Denies Surgical History: Denies all surgeries Family History Family History: Family hx of DM Social History Smoker: Cigarettes Alcohol: Heavy Drugs: Cocaine, Marijuana, Methamphetamine Lives In: Homeless Was a procedure done? Was a procedure done?: No Differential Diagnosis (ALOC) Differential Diagnosis: Dehydration, Hypoglycemia, Encephalopathy, Meningitis, Sepsis, Hypoxemia, Seizure, Drug Overdose, ETOH Intoxication, Renal Failure, Other X-Ray, Labs, Meds, VS Vital Signs Date Time Temp Pulse Resp B/P (MAP) Pulse Ox O2 Delivery O2 Flow Rate FiO2 01/23/25 17:56 98.9 89 24 125/79 (94) 99 98.9 Lab Test 01/23/25 19:03 Range/Units White Blood Count 5.0 4.4-10.8 10^3/uL Red Blood Count 4.25 L 4.5-5.90 10^6/uL Hemoglobin 13.0 L 13.5-17.5 g/dL Hematocrit 39.7 L 41.0-53.0 % Mean Corpuscular Volume 93.4 80.0-100.0 fL Mean Corpuscular Hemoglobin 30.6 28.0-32.0 pg Mean Corpuscular Hemoglobin Concent 32.8 32.0-36.0 g/dL Red Cell Distribution Width 17.5 H 11.8-14.3 % Platelet Count 315 140-450 10^3/uL Mean Platelet Volume 8.6 6.9-10.8 fL Neutrophils (%) (Auto) 49.6 37.0-80.0 % Lymphocytes (%) (Auto) 37.5 10.0-50.0 % Monocytes (%) (Auto) 8.0 0.0-12.0 % Eosinophils (%) (Auto) 1.5 0.0-7.0 % Basophils (%) (Auto) 3.4 H 0.0-2.0 % Neutrophils # (Auto) 2.5 1.6-8.6 10 ^3/uL Lymphocytes # (Auto) 1.9 0.4-5.4 10 ^3/uL Monocytes # (Auto) 0.4 0-1.3 10 ^3/uL Eosinophils # (Auto) 0.1 0-0.8 10 ^3/uL Basophils # (Auto) 0.2 0-0.2 10 ^3/uL Nucleated Red Blood Cells 0.3 % Sodium Level 141 136-145 mmol/L Potassium Level 3.8 3.5-5.1 mmol/L Chloride Level 107 98-107 mmol/L Carbon Dioxide Level 26 20-31 mmol/L Anion Gap 8 5-15 Blood Urea Nitrogen 8 L 9-23 mg/dL Creatinine 0.94 0.700-1.30 mg/dL Glomerular Filtration Rate Calc 106 >90 mL/min BUN/Creatinine Ratio 8.5 L 10.0-20.0 Serum Glucose 91 74-106 mg/dL Calcium Level 8.9 8.7-10.4 mg/dL Magnesium Level 2.3 1.6-2.6 mg/dL Total Bilirubin 0.4 0.2-1.0 mg/dL Aspartate Amino Transferase (AST) 33 13-40 U/L Alanine Aminotransferase (ALT) 26 7-40 U/L Alkaline Phosphatase 67 46-116 U/L Total Protein 6.6 5.7-8.2 g/dL Albumin 4.4 3.2-4.8 g/dL Plasma/Serum Blood Alcohol 331.4 H <10 mg/dL Time of 1ST Reevaluation: 18:54 Reevaluation 1ST: Unchanged Patient Education/Counseling: Pt Unresponsive Family Education/Counseling: No Family Present Departure 1 Departure Time of Disposition: 21:39 Impression: Primary Impression: Alcohol intoxication Additional Impressions: Altered mental status Eloped from emergency department Disposition: 07 LEFT AWOL/ELOPED Condition: Other Comments Patient eloped from the emergency department. I was not made aware of patient's departure from the ED. Critical Care Note Critical Care Time?: No Stability Stability form required: No Heart Score Heart Score: Heart Score Response (Comments) Value History N/A 0 EKG N/A 0 Age N/A 0 Risk Factors N/A 0 Troponin N/A 0 Total 0 I personally scribed for MALIA HOPKINS MD ([email or web address]) on 01/23/25 at 18:42. Electronically submitted by Renzo Huber ([email or web address]). MALIA HOPKINS MD Jan 23, 2025 18:42
[2025-01-23] MEDS ORDERED: FOLIC ACID 1 MG in D5W 5% 50 ML INJ STA (18:54)
[2025-01-23] MEDS ORDERED: THIAMINE 100mg/ml INJ (200mg/2ml VIAL) IV ONE (19:00)
[2025-01-23] MEDS ORDERED: SODIUM CHLORIDE 0.9% 1,000 ML IVB ONE (19:00)
[2025-01-23 19:29] LABS: Basophils # (auto) 0.2 10 ^3/uL (0-0.2); Basophils % (auto) 3.4 % (0.0-2.0); Eosinophils # (auto) 0.1 10 ^3/uL (0-0.8); Eosinophils % (auto) 1.5 % (0.0-7.0); Hematocrit 39.7 % (41.0-53.0); Lymphocytes # (auto) 1.9 10 ^3/uL (0.4-5.4); Lymphocytes % (auto) 37.5 % (10.0-50.0); Mean Corpuscular Hemoglobin 30.6 pg (28.0-32.0); Mean Corpuscular Hgb Conc. 32.8 g/dL (32.0-36.0); Mean Corpuscular Volume 93.4 fL (80.0-100.0); Monocytes # (auto) 0.4 10 ^3/uL (0-1.3); Neutrophils # (auto) 2.5 10 ^3/uL (1.6-8.6); Neutrophils % (auto) 49.6 % (37.0-80.0); Nucleated Red Blood Cells % 0.3 %; Platelet Count (auto) 315 10^3/uL (140-450); Red Blood Cells 4.25 10^6/uL (4.5-5.90); Red Cell Distribution Width 17.5 % (11.8-14.3)
[2025-01-23] MEDS ORDERED: GABAPENTIN 300 MG CAP PO ONE (19:30)
[2025-01-23 19:46] LABS: Alanine Aminotransferase 26 U/L (7-40); Albumin 4.4 g/dL (3.2-4.8); Alkaline Phosphatase 67 U/L (46-116); Anion Gap 8 (5-15); Aspartate Aminotransferase 33 U/L (13-40); BUN/Creatinine Ratio 8.5 (10.0-20.0); Calcium 8.9 mg/dL (8.7-10.4); Carbon Dioxide 26 mmol/L (20-31); Chloride 107 mmol/L (98-107); Glucose 91 mg/dL (74-106); Magnesium 2.3 mg/dL (1.6-2.6); Potassium 3.8 mmol/L (3.5-5.1); Sodium 141 mmol/L (136-145); Total Protein 6.6 g/dL (5.7-8.2)
[2025-01-23 19:47] LABS: Bilirubin, Total 0.4 mg/dL (0.2-1.0)
[2025-01-23 19:51] LABS: Blood Urea Nitrogen 8 mg/dL (9-23)
[2025-01-23 20:08] LABS: Blood Alcohol 331.4 mg/dL (<10)
== END 2025-01-23 19:37 | disposition left against medical advice (07) ==
LOC: EDBD 17:53 → ER 17:53
DX: F10.129 Alcohol abuse with intoxication, unspecified (principal); R41.82 Altered mental status, unspecified; F17.210 Nicotine dependence, cigarettes, uncomplicated; F12.90 Cannabis use, unspecified, uncomplicated; F15.90 Other stimulant use, unspecified, uncomplicated; Z59.00 Homelessness unspecified; Y90.8 Blood alcohol level of 240 mg/100 ml or more
CPT/HCPCS: 36415; 80053; 80320; 83735; 85025; 99283; J7060

== ENCOUNTER 2025-04-16 03:45 | Emergency (ER) | payer MEDICAID ==
[~2025-04-16] VITALS: Ht 188 cm; Wt 71.1 kg
--- NOTE | 2025-04-16 04:15 | ED.PDOC ---
Back pain HPI HPI Comments 39-year-old male presents to the ED chief complaint chronic left leg pain. Patient states proximally 10 years ago had an injury and surgical repair with rods for. States he has been skateboarding and walking a lot for the past couple of days states increasing pain. New injury. Denies numbness or weakness. Chief Complaint: Lower Extremity Time Seen by MD: 03:57 Primary Care Provider: NONE Reviewed Notes: Nurses Notes, Medications, Allergies Allergies: Coded Allergies: NO KNOWN ALLERGIES (Unverified , 08/09/15) Information Source: Patient Past Medical History PAST MEDICAL HISTORY: Denies Surgical History: Denies all surgeries Family History Family History: Family hx of DM Social History Smoker: Cigarettes Alcohol: Heavy Drugs: Cocaine, Marijuana, Methamphetamine Lives In: Homeless Constitutional: denies: chills, diaphoresis, fatigue, fever, malaise, sweats, weakness, others EENTM: denies: blurred vision, double vision, ear bleeding, ear discharge, ear drainage, ear pain, ear ringing, eye pain, eye redness, hearing loss, mouth pain, mouth swelling, nasal discharge, nose bleeding, nose congestion, nose pain, photophobia, tearing, throat pain, throat swelling, voice changes, others Respiratory: denies: cough, hemoptysis, orthopnea, SOB at rest, shortness of breath, SOB with excertion, stridor, wheezing, others Cardiovascular: denies: chest pain, dizzy spells, diaphoresis, Dyspnea on exertion, edema, irregular heart beat, left arm pain, lightheadedness, palpitations, PND, syncope, others Gastrointestinal: denies: abdomen distended, abdominal pain, blood streaked bowels, constipated, diarrhea, dysphagia, difficulty swallowing, hematemesis, melena, nausea, poor appetite, poor fluid intake, rectal bleeding, rectal pain, vomiting, others Genitourinary: denies: burning, dysuria, flank pain, frequency, hematuria, incontinence, penile discharge, penile sore, pain, testicle pain, testicle swelling, urgency, others Neurological: denies: dizziness, fainting, headache, left sided numbness, left sided weakness, numbness, paresthesia, pre-existing deficit, right sided numbness, right sided weakness, seizure, speech problems, tingling, tremors, weakness, others Musculoskeletal: reports: others (left lower leg pain); denies: back pain, gout, joint pain, joint swelling, muscle pain, muscle stiffness, neck pain Integumetry: denies: bruises, change in color, change in hair/nails, dryness, laceration, lesions, lumps, rash, wounds, others Allergic/Immunocompromised: denies: Difficulty Healing, Frequent Infections, Hives, Itching, others Hematologic/Lymphatic: denies: anemia, blood clots, easy bleeding, easy bruising, swollen glands, others Endocrine: denies: excessive hunger, excessive sweating, excessive thirst, excessive urination, flushing, intolerance to cold, intolerance to heat, unexplained weight gain, unexplained weight loss, others Psychiatric: denies: anxiety, bipolar disorder, depression, hopeless, panic disorder, schizophrenia, sleepless, suicidal, others Physical Exam General Appearance: No Apparent Distress, Normal HEENT: Pharynx Normal Neck: Full Range of Motion, Non-Tender Respiratory: Lungs Clear, No Respiratory Distress, Normal Breath Sounds Cardiovascular: No Murmur, Normal Peripheral Pulses, Regular Rate/Rhythm Breast Exam: Deferred Gastrointestinal: Non Tender, Soft Genitalia: Deferred Pelvic: Deferred Rectal: Deferred Extremities: Normal capillary refill, Normal inspection, Normal range of motion, Non-tender, No pedal edema Musculoskeletal : Apperance: Normal Neurologic: Alert, No Motor Deficits, Normal Affect, Normal Mood, No Sensory Deficits Cerebellar Function: Normal Reflexes: Normal Skin: Dry, Normal Color, Warm Lymphatic: No Adenopathy Was a procedure done? Was a procedure done?: No Back Pain Differential Dx Differential Diagnosis: Musculoskeletal Pain X-Ray, Labs, Meds, VS Comment Patient given ibuprofen. Advised [id number] Tylenol or Motrin as needed for the pain. Follow up with your PCP in 2 days. ER return precautions given patient indicates understanding agrees with discharge plan of care. Time of 1ST Reevaluation: 03:57 Reevaluation 1ST: Unchanged Time of 2ND Reevaluation: 04:19 Reevaluation 2ND: Improved Patient Education/Counseling: Diagnosis, Treatment, Prognosis, Need For Follow Up Family Education/Counseling: No Family Present SEPSIS Sepsis Screen Departure 1 Departure Time of Disposition: 04:15 Impression: Primary Impression: Chronic leg pain Qualified Codes: M79.605 - Pain in left leg; G89.29 - Other chronic pain Disposition: 01 HOME / SELF CARE / HOMELESS Condition: Stable Discharged With: Self Critical Care Note Critical Care Time?: No Stability Stability form required: YESENIA Zimmer Apr 16, 2025 04:15
[2025-04-16 05:38] VITALS: BP 143/82; PULSE 65; RESP 18; TEMP 98.3; O2SAT 100
[2025-04-16] MEDS: IBUPROFEN 400 MG TAB PO ONE (05:38)
[2025-04-16] MEDS: HYDROcodone-ACET 5/325MG TAB PO ONE (06:13)
== END 2025-04-16 05:42 | disposition home or self-care (01) ==
LOC: ER 03:45
DX: G89.29 Other chronic pain (principal); M79.605 Pain in left leg; F17.210 Nicotine dependence, cigarettes, uncomplicated

== ENCOUNTER 2025-04-19 12:31 | Emergency (ER) | payer MEDICAID ==
[~2025-04-19] VITALS: Ht 180.3 cm; Wt 75.0 kg
[2025-04-19 12:47] VITALS: BP 119/86; PULSE 84; RESP 17; TEMP 99.4; O2SAT 96
[2025-04-19 13:21] LABS: Hematocrit 43.2 % (41.0-53.0); Hemoglobin 14.6 g/dL (13.5-17.5); Mean Corpuscular Hemoglobin 32.2 pg (28.0-32.0); Mean Corpuscular Volume 95.0 fL (80.0-100.0); Nucleated Red Blood Cells % 0.1 %
[2025-04-19 13:33] LABS: Anion Gap 12 (5-15); Carbon Dioxide 25 mmol/L (20-31); Chloride 107 mmol/L (98-107); Sodium 144 mmol/L (136-145)
[2025-04-19 13:34] LABS: Calcium 9.2 mg/dL (8.7-10.4); Potassium 3.4 mmol/L (3.5-5.1)
[2025-04-19 13:39] LABS: BUN/Creatinine Ratio 11.9 (10.0-20.0); Blood Urea Nitrogen 10 mg/dL (9-23); Glucose 90 mg/dL (74-106)
--- NOTE | 2025-04-19 14:15 | ED.PDOC ---
History of Present Illness HPI Comments This is a 39-year-old male who comes in with chief complaint of alcohol intoxication. The patient was found by bystanders laying down in the dirt. The patient had a C-collar on and was writhing around in the dirt. The patient has smelled of a significant amount of alcohol. The patient was then transported to our facility. Upon arrival, the patient is somewhat uncooperative. Patient denies any chest pain or shortness for breath. Chief Complaint: ETOH Time Seen by MD: 12:34 Primary Care Provider: NONE Reviewed Notes: Nurses Notes, Inside Sales Associate Notes, Medications, Allergies (No allergies to medications) Allergies: Coded Allergies: NO KNOWN ALLERGIES (Unverified , 08/09/15) Information Source: Patient Mode of Arrival: EMS Severity: Moderate Timing: Hours Duration: Since onset Prehospital treatment: Transmission Operator, C-Collar (The patient has a C-collar on at this time), IVF Associated signs and symptoms No nausea or vomiting Past Medical History PAST MEDICAL HISTORY: Denies Surgical History: Denies all surgeries Family History Family History: Family hx of DM Social History Smoker: Cigarettes Alcohol: Heavy Drugs: Cocaine, Marijuana, Methamphetamine Lives In: Homeless Constitutional: denies: chills, diaphoresis, fatigue, fever, malaise, sweats, weakness, others EENTM: denies: blurred vision, double vision, ear bleeding, ear discharge, ear drainage, ear pain, ear ringing, eye pain, eye redness, hearing loss, mouth pain, mouth swelling, nasal discharge, nose bleeding, nose congestion, nose pain, photophobia, tearing, throat pain, throat swelling, voice changes, others Respiratory: denies: cough, hemoptysis, orthopnea, SOB at rest, shortness of breath, SOB with excertion, stridor, wheezing, others Cardiovascular: denies: chest pain, dizzy spells, diaphoresis, Dyspnea on exertion, edema, irregular heart beat, left arm pain, lightheadedness, palpitations, PND, syncope, others Gastrointestinal: denies: abdomen distended, abdominal pain, blood streaked bowels, constipated, diarrhea, dysphagia, difficulty swallowing, hematemesis, melena, nausea, poor appetite, poor fluid intake, rectal bleeding, rectal pain, vomiting, others Genitourinary: denies: burning, dysuria, flank pain, frequency, hematuria, incontinence, penile discharge, penile sore, pain, testicle pain, testicle swelling, urgency, others Neurological: denies: dizziness, fainting, headache, left sided numbness, left sided weakness, numbness, paresthesia, pre-existing deficit, right sided numbness, right sided weakness, seizure, speech problems, tingling, tremors, weakness, others Musculoskeletal: reports: neck pain (C-collar in place); denies: back pain, gout, joint pain, joint swelling, muscle pain, muscle stiffness, others Integumetry: denies: bruises, change in color, change in hair/nails, dryness, laceration, lesions, lumps, rash, wounds, others Allergic/Immunocompromised: denies: Difficulty Healing, Frequent Infections, Hives, Itching, others Hematologic/Lymphatic: denies: anemia, blood clots, easy bleeding, easy bruising, swollen glands, others Endocrine: denies: excessive hunger, excessive sweating, excessive thirst, excessive urination, flushing, intolerance to cold, intolerance to heat, unexplained weight gain, unexplained weight loss, others Psychiatric: denies: anxiety, bipolar disorder, depression, hopeless, panic disorder, schizophrenia, sleepless, suicidal, others Physical Exam General Appearance: Mild Distress HEENT: Normal ENT Inspection, Pharynx Normal, TMs Normal Neck: Other (C-collar in place) Respiratory: Chest Non-Tender, Lungs Clear, No Accessory Muscle Use, No Respiratory Distress, Normal Breath Sounds Cardiovascular: No Edema, No JVD, No Murmur, No Gallop, Normal Peripheral Pulses, Regular Rate/Rhythm Breast Exam: Deferred Gastrointestinal: No Organomegaly, Non Tender, No Pulsatile Mass, Normal Bowel Sounds, Soft Genitalia: Deferred Pelvic: Deferred Rectal: Deferred Extremities: No calf tenderness, Normal capillary refill, No pedal edema Musculoskeletal : Apperance: Normal Neurologic: wine steward/stewardess II-XII nml as Tested, Motor Weakness, Normal Affect, Normal Mood, No Sensory Deficits Cerebellar Function: Normal Reflexes: Normal Skin: Dry, Normal Color, Warm Lymphatic: No Adenopathy Was a procedure done? Was a procedure done?: No Differential Dx Considerations may include: Alcohol intoxication, substance abuse X-Ray, Labs, Meds, VS Vital Signs Date Time Temp Pulse Resp B/P (MAP) Pulse Ox O2 Delivery O2 Flow Rate FiO2 7/8/25 12:47 99.4 84 17 119/86 (97) 96 99.4 Lab Test 04/19/25 13:05 Range/Units White Blood Count 6.0 4.4-10.8 10^3/uL Red Blood Count 4.54 4.5-5.90 10^6/uL Hemoglobin 14.6 13.5-17.5 g/dL Hematocrit 43.2 41.0-53.0 % Mean Corpuscular Volume 95.0 80.0-100.0 fL Mean Corpuscular Hemoglobin 32.2 H 28.0-32.0 pg Mean Corpuscular Hemoglobin Concent 33.8 32.0-36.0 g/dL Red Cell Distribution Width 16.0 H 11.8-14.3 % Platelet Count 239 140-450 10^3/uL Mean Platelet Volume 8.1 6.9-10.8 fL Neutrophils (%) (Auto) 60.8 37.0-80.0 % Lymphocytes (%) (Auto) 30.4 10.0-50.0 % Monocytes (%) (Auto) 7.1 0.0-12.0 % Eosinophils (%) (Auto) 1.1 0.0-7.0 % Basophils (%) (Auto) 0.6 0.0-2.0 % Neutrophils # (Auto) 3.6 1.6-8.6 10 ^3/uL Lymphocytes # (Auto) 1.8 0.4-5.4 10 ^3/uL Monocytes # (Auto) 0.4 0-1.3 10 ^3/uL Eosinophils # (Auto) 0.1 0-0.8 10 ^3/uL Basophils # (Auto) 0 0-0.2 10 ^3/uL Nucleated Red Blood Cells 0.1 % Sodium Level 144 136-145 mmol/L Potassium Level 3.4 L 3.5-5.1 mmol/L Chloride Level 107 98-107 mmol/L Carbon Dioxide Level 25 20-31 mmol/L Anion Gap 12 5-15 Blood Urea Nitrogen 10 9-23 mg/dL Creatinine 0.84 0.700-1.30 mg/dL Glomerular Filtration Rate Calc 114 >90 mL/min BUN/Creatinine Ratio 11.9 10.0-20.0 Serum Glucose 90 74-106 mg/dL Calcium Level 9.2 8.7-10.4 mg/dL Plasma/Serum Blood Alcohol 342.2 H <10 mg/dL The CBC is within normal limits The chemistry panel is within normal limits. The patient's alcohol level is 342.2 At this time, the patient has decided to get up and leave the department's The patient grabbed his backpack and walked out the door We did try to encourage the patient to stay but he decided to leave any ways. Time of 1ST Reevaluation: 14:15 Reevaluation 1ST: Unchanged Patient Education/Counseling: Diagnosis, Treatment, Prognosis Family Education/Counseling: No Family Present SEPSIS Sepsis Screen Date sepsis recognized/suspect: Apr 19, 2025 Time Sepsis recognized/suspect: 1246 Recent Procedure: No On Antibiotic Therapy: No Respiratory Rate >20: No Heart Rate >90: No Temp<36 C (96.8 F) or >38.3 C: No SBP <90 or MAP <65 mmHG: No New Acute Mental Status Change: No Is the patient on CPAP, BIPAP,: No Physician Orders Heplock Iv (04/19/25 12:34) Transmission Operator (04/19/25 12:34) Blood Pressure (04/19/25 12:34) Pulse Oximetry (04/19/25 12:34) Drug Screen (04/19/25 12:34) Vital Signs Date Time Temp Pulse Resp B/P (MAP) Pulse Ox O2 Delivery O2 Flow Rate FiO2 04/19/25 12:47 99.4 84 17 119/86 (97) 96 99.4 Laboratory Tests Test 04/19/25 13:05 White Blood Count 6.0 10^3/uL (4.4-10.8) Departure 1 Departure Time of Disposition: 14:14 Impression: Primary Impression: Alcohol abuse Additional Impression: Polydrug abuse Disposition: 07 LEFT AWOL/ELOPED Condition: Fair Critical Care Note Critical Care Time?: No Stability Stability form required: No Heart Score Heart Score: Heart Score Response (Comments) Value History N/A 0 EKG N/A 0 Age N/A 0 Risk Factors N/A 0 Troponin N/A 0 Total 0 STEVE JOHNSON MD Apr 19, 2025 14:15
== END 2025-04-19 13:28 | disposition left against medical advice (07) ==
LOC: EDBD 12:31 → ER 12:31
DX: F10.129 Alcohol abuse with intoxication, unspecified (principal); F12.90 Cannabis use, unspecified, uncomplicated; F19.90 Other psychoactive substance use, unspecified, uncomplicated; F17.210 Nicotine dependence, cigarettes, uncomplicated; Z59.00 Homelessness unspecified; Y90.8 Blood alcohol level of 240 mg/100 ml or more
CPT/HCPCS: 36415; 80048; 80320; 85025

== ENCOUNTER 2025-04-30 20:18 | Emergency (ER) | payer MEDICAID ==
[~2025-04-30] VITALS: Ht 190.5 cm; Wt 81.8 kg
[2025-04-30] MEDS ORDERED: THIAMINE 100mg/ml INJ (200mg/2ml VIAL) IV ONE (20:30)
[2025-04-30] MEDS ORDERED: ONDANSETRON HCL 4 MG/2 ML VIAL IV ONE (20:30)
[2025-04-30] MEDS ORDERED: SODIUM CHLORIDE 0.9% 2,000 ML IV ONE (20:30)
--- NOTE | 2025-04-30 20:32 | ED.PDOC ---
History of Present Illness HPI Comments This patient is a 39-year-old male who was brought in by EMS today due to alcohol intoxication concerns. Patient was found asleep on a sidewalk. Patient arrives intoxicated. Patient asked for some IV rehydration and food. Vital signs were stable. Time Seen by MD: 20:22 Primary Care Provider: NONE Reviewed Notes: Nurses Notes Allergies: Coded Allergies: NO KNOWN ALLERGIES (Unverified , 08/09/15) Information Source: Patient, Emergency Med Personnel Mode of Arrival: EMS Severity: Moderate Timing: Hours Duration: Since onset Prehospital treatment: None Past Medical History PAST MEDICAL HISTORY: Denies Surgical History: Denies all surgeries Family History Family History: Family hx of DM Social History Smoker: Cigarettes Alcohol: Heavy Drugs: Cocaine, Marijuana, Methamphetamine Lives In: Homeless Constitutional: denies: chills, diaphoresis, fatigue, fever, malaise, sweats, weakness, others EENTM: denies: blurred vision, double vision, ear bleeding, ear discharge, ear drainage, ear pain, ear ringing, eye pain, eye redness, hearing loss, mouth pain, mouth swelling, nasal discharge, nose bleeding, nose congestion, nose pain, photophobia, tearing, throat pain, throat swelling, voice changes, others Respiratory: denies: cough, hemoptysis, orthopnea, SOB at rest, shortness of breath, SOB with excertion, stridor, wheezing, others Cardiovascular: denies: chest pain, dizzy spells, diaphoresis, Dyspnea on exertion, edema, irregular heart beat, left arm pain, lightheadedness, palpitations, PND, syncope, others Gastrointestinal: denies: abdomen distended, abdominal pain, blood streaked bowels, constipated, diarrhea, dysphagia, difficulty swallowing, hematemesis, melena, nausea, poor appetite, poor fluid intake, rectal bleeding, rectal pain, vomiting, others Genitourinary: denies: burning, dysuria, flank pain, frequency, hematuria, incontinence, penile discharge, penile sore, pain, testicle pain, testicle swelling, urgency, others Neurological: denies: dizziness, fainting, headache, left sided numbness, left sided weakness, numbness, paresthesia, pre-existing deficit, right sided numbness, right sided weakness, seizure, speech problems, tingling, tremors, weakness, others Musculoskeletal: denies: back pain, gout, joint pain, joint swelling, muscle pain, muscle stiffness, neck pain, others Integumetry: denies: bruises, change in color, change in hair/nails, dryness, laceration, lesions, lumps, rash, wounds, others Allergic/Immunocompromised: denies: Difficulty Healing, Frequent Infections, Hives, Itching, others Hematologic/Lymphatic: denies: anemia, blood clots, easy bleeding, easy bruising, swollen glands, others Endocrine: denies: excessive hunger, excessive sweating, excessive thirst, excessive urination, flushing, intolerance to cold, intolerance to heat, unexplained weight gain, unexplained weight loss, others Psychiatric: denies: anxiety, bipolar disorder, depression, hopeless, panic disorder, schizophrenia, sleepless, suicidal, others Unable to Obtain due to: Altered Mental Status (Altered due to alcohol abuse) Physical Exam General Appearance: No Apparent Distress (Patient was in no distress but intoxicated.), Normal HEENT: Normal ENT Inspection, Pharynx Normal, TMs Normal Neck: Full Range of Motion, Non-Tender, Normal, Normal Inspection Respiratory: Chest Non-Tender, Lungs Clear, No Accessory Muscle Use, No Respiratory Distress, Normal Breath Sounds Cardiovascular: No Edema, No JVD, No Murmur, No Gallop, Normal Peripheral Pulses, Regular Rate/Rhythm Breast Exam: Deferred Gastrointestinal: No Organomegaly, Non Tender, No Pulsatile Mass, Normal Bowel Sounds, Soft Genitalia: Deferred Pelvic: Deferred Rectal: Deferred Extremities: No calf tenderness, Normal capillary refill, Normal inspection, Normal range of motion, Non-tender, No pedal edema Neurologic: Alert Cerebellar Function: NOT DONE Reflexes: NOT DONE Skin: Other (Patient has some jose on his face, arms and legs. Patchy areas of excoriation noted.) Lymphatic: No Adenopathy Was a procedure done? Was a procedure done?: No Differential Dx Considerations may include: Alcohol abuse, alcohol intoxication X-Ray, Labs, Meds, VS Comment Patient was in receive fluids, thiamine and Zofran while at the facility. Patient will be provided with some food prior to discharge. Advised patient cease alcohol use immediately and follow up with a alcohol cessation programs such as AA. Time of 1ST Reevaluation: 20:30 Reevaluation 1ST: Improved Consultation: PCP Patient Education/Counseling: Diagnosis, Treatment Family Education/Counseling: Diagnosis, Treatment SEPSIS Sepsis Screen Recent Procedure: No On Antibiotic Therapy: No Respiratory Rate >20: No Heart Rate >90: No Temp<36 C (96.8 F) or >38.3 C: No SBP <90 or MAP <65 mmHG: No New Acute Mental Status Change: No Is the patient on CPAP, BIPAP,: No Physician Orders NS (04/30/25 20:30) Heplock Iv (04/30/25 ) Thiamine Inj (04/30/25 20:30) Ondansetron Hcl (Zofran) (04/30/25 20:30) Departure 1 Departure Time of Disposition: 20:31 Impression: Primary Impression: Alcohol abuse Additional Impression: Alcohol intoxication Disposition: 01 HOME / SELF CARE / HOMELESS Condition: Stable Additional Instructions: Spent time discussing alcohol abuse with the patient. Advised follow up with a alcohol cessation programs such as [facility]. Discharged With: Self Critical Care Note Critical Care Time?: No Stability Stability form required: No Heart Score Heart Score: Heart Score Response (Comments) Value History N/A 0 EKG N/A 0 Age N/A 0 Risk Factors N/A 0 Troponin N/A 0 Total 0 HIMA LEIJA PAC Apr 30, 2025 20:32
[2025-04-30 20:38] VITALS: BP 145/88; PULSE 111; RESP 18; TEMP 98.4; O2SAT 98
== END 2025-05-01 00:10 | disposition left against medical advice (07) ==
LOC: EDBD 20:18 → ER 20:18
DX: F10.129 Alcohol abuse with intoxication, unspecified (principal); F17.210 Nicotine dependence, cigarettes, uncomplicated; Y90.9 Presence of alcohol in blood, level not specified

== ENCOUNTER 2025-05-07 12:27 | Emergency (ER) | payer MEDICAID ==
[~2025-05-07] VITALS: Ht 188 cm; Wt 82.0 kg
--- NOTE | 2025-05-07 12:31 | ED.PDOC ---
History of Present Illness HPI Comments 39-year-old male brought by paramedics from the does not because he twisted his right ankle this morning causing pain. He states that he is unable to place weight on his right foot. He does have a history of smoking cigarettes methamphetamine alcohol. Denies suicidal or homicidal ideation. Denies any other symptoms. Time Seen by MD: 12:28 Primary Care Provider: NONE Reviewed Notes: Nurses Notes, Medications, Allergies Allergies: Coded Allergies: NO KNOWN ALLERGIES (Unverified , 08/09/15) Information Source: Patient, Emergency Med Personnel Mode of Arrival: EMS Severity: Moderate Timing: Hours Duration: Since onset Past Medical History PAST MEDICAL HISTORY: Denies Surgical History: Denies all surgeries Family History Family History: Family hx of DM Social History Smoker: Cigarettes Alcohol: Heavy Drugs: Cocaine, Marijuana, Methamphetamine Lives In: Homeless Constitutional: denies: chills, diaphoresis, fatigue, fever, malaise, sweats, weakness, others EENTM: denies: blurred vision, double vision, ear bleeding, ear discharge, ear drainage, ear pain, ear ringing, eye pain, eye redness, hearing loss, mouth pain, mouth swelling, nasal discharge, nose bleeding, nose congestion, nose pain, photophobia, tearing, throat pain, throat swelling, voice changes, others Respiratory: denies: cough, hemoptysis, orthopnea, SOB at rest, shortness of breath, SOB with excertion, stridor, wheezing, others Cardiovascular: denies: chest pain, dizzy spells, diaphoresis, Dyspnea on exertion, edema, irregular heart beat, left arm pain, lightheadedness, palpitations, PND, syncope, others Gastrointestinal: denies: abdomen distended, abdominal pain, blood streaked bowels, constipated, diarrhea, dysphagia, difficulty swallowing, hematemesis, melena, nausea, poor appetite, poor fluid intake, rectal bleeding, rectal pain, vomiting, others Genitourinary: denies: burning, dysuria, flank pain, frequency, hematuria, incontinence, penile discharge, penile sore, pain, testicle pain, testicle swelling, urgency, others Neurological: denies: dizziness, fainting, headache, left sided numbness, left sided weakness, numbness, paresthesia, pre-existing deficit, right sided numbness, right sided weakness, seizure, speech problems, tingling, tremors, weakness, others Musculoskeletal: reports: joint pain (Right ankle); denies: back pain, gout, joint swelling, muscle pain, muscle stiffness, neck pain, others Integumetry: denies: bruises, change in color, change in hair/nails, dryness, laceration, lesions, lumps, rash, wounds, others Hematologic/Lymphatic: denies: anemia, blood clots, easy bleeding, easy b ruising, swollen glands, others Endocrine: denies: excessive hunger, excessive sweating, excessive thirst, excessive urination, flushing, intolerance to cold, intolerance to heat, unexplained weight gain, unexplained weight loss, others Psychiatric: denies: anxiety, bipolar disorder, depression, hopeless, panic disorder, schizophrenia, sleepless, suicidal, others Physical Exam General Appearance: Moderate Distress HEENT: Normal ENT Inspection, Pharynx Normal, TMs Normal Neck: Full Range of Motion, Non-Tender, Normal, Normal Inspection Respiratory: Chest Non-Tender, Lungs Clear, No Accessory Muscle Use, No Respiratory Distress, Normal Breath Sounds Cardiovascular: No Edema, No JVD, No Murmur, No Gallop, Normal Peripheral Pulses, Regular Rate/Rhythm Breast Exam: Deferred Gastrointestinal: No Organomegaly, Non Tender, No Pulsatile Mass, Normal Bowel Sounds, Soft Genitalia: Deferred Pelvic: Deferred Rectal: Deferred Extremities: No calf tenderness, Normal capillary refill, Normal inspection, Normal range of motion, Non-tender, No pedal edema Musculoskeletal : Apperance: Normal Neurologic: Alert, german teacher II-XII nml as Tested, No Motor Deficits, Normal Affect, Normal Mood, No Sensory Deficits Cerebellar Function: Normal Reflexes: Normal Skin: Dry, Normal Color, Warm Peripheral Pulses: 3+ Radial (R), 3+ Radial (L) Lymphatic: No Adenopathy Was a procedure done? Was a procedure done?: No Differential Dx Considerations may include: Muscle strain Musculoskeletal pain X-Ray, Labs, Meds, VS Patient alert. Complaining of musculoskeletal pain. Vitals stable. Answering questions. No sign of any injury. Good pulses. No leg swelling. Drug induced symptoms. Counseled patient on effects of taking drugs. Explained to the patient. Was told to follow up with his primary care physician. Was told to come back if there is any problem. Time of 1ST Reevaluation: 12:30 Reevaluation 1ST: Improved Patient Education/Counseling: Diagnosis, Treatment, Prognosis, Need For Follow Up Family Education/Counseling: No Family Present Departure 1 Departure Time of Disposition: 12:30 Impression: Primary Impression: Alcohol abuse Additional Impression: Chronic leg pain Qualified Codes: M79.606 - Pain in leg, unspecified; G89.29 - Other chronic pain Disposition: 01 HOME / SELF CARE / HOMELESS Condition: Good Discharged With: Self Critical Care Note Critical Care Time?: No Stability Stability form required: No Heart Score Heart Score: Heart Score Response (Comments) Value History N/A 0 EKG N/A 0 Age N/A 0 Risk Factors N/A 0 Troponin N/A 0 Total 0 GABRIELA CARDENAS MD May 07, 2025 12:31
[2025-05-07] MEDS: KETOROLAC TROMETH 60MG/2ML VIAL IM ONE (12:45)
--- NOTE | 2025-05-07 13:28 | DVH ---
CLINICAL INDICATION: fall TECHNIQUE: 2 radiographic views of the right ankle were obtained. Comparison: None FINDINGS/IMPRESSION: There is no evidence of acute fracture or dislocation. The visualized joint space is well maintained. The alignment is anatomical. There is no radiopaque foreign body.
[2025-05-07 14:20] VITALS: BP 104/60; TEMP 97.6
[2025-05-07] MEDS: HYDROcodone-ACET 5/325MG TAB PO ONE (15:15)
[2025-05-07 15:24] VITALS: PULSE 86; RESP 20; O2SAT 99
== END 2025-05-07 15:26 | disposition home or self-care (01) ==
LOC: EDBD 12:27 → ER 12:33
DX: F10.10 Alcohol abuse, uncomplicated (principal); G89.29 Other chronic pain; M25.571 Pain in right ankle and joints of right foot; Y90.9 Presence of alcohol in blood, level not specified; F17.210 Nicotine dependence, cigarettes, uncomplicated
CPT/HCPCS: 73600

== ENCOUNTER 2025-05-20 11:02 | Emergency (ER) | payer MEDICAID ==
[~2025-05-20] VITALS: Ht 182.9 cm; Wt 75.0 kg
--- NOTE | 2025-05-20 11:07 | ED.PDOC ---
History of Present Illness HPI Comments 39 year old male presents to the ED via EMS with a chief complaint of ETOH onset today (05/20/25). EMS states patient had 1/2 gallon of Vodka, admitted to methamphetamine use this morning. Patient is a poor historian, asking for more vodka, not answering questions. No other symptoms or modifying factors present at this time. Time Seen by MD: 11:05 Primary Care Provider: NONE Reviewed Notes: Medications, Allergies Allergies: Coded Allergies: NO KNOWN ALLERGIES (Unverified , 08/09/15) Information Source: Patient, Emergency Med Personnel Mode of Arrival: EMS Severity: Moderate Timing: Hours Duration: Since onset Prehospital treatment: None Past Medical History PAST MEDICAL HISTORY: Denies Surgical History: Denies all surgeries Family History Family History: Family hx of DM Social History Smoker: Cigarettes Alcohol: Heavy Drugs: Cocaine, Marijuana, Methamphetamine Lives In: Homeless Unable to Obtain due to: Other (etoh intoxication) Physical Exam General Appearance: Moderate Distress HEENT: Normal ENT Inspection, Pharynx Normal, TMs Normal Neck: Full Range of Motion, Non-Tender, Normal, Normal Inspection Respiratory: Chest Non-Tender, Lungs Clear, No Accessory Muscle Use, No Respiratory Distress, Normal Breath Sounds Cardiovascular: No Edema, No JVD, No Murmur, No Gallop, Normal Peripheral Pulses, Regular Rate/Rhythm Breast Exam: Deferred Gastrointestinal: No Organomegaly, Non Tender, No Pulsatile Mass, Normal Bowel Sounds, Soft Genitalia: Deferred Pelvic: Deferred Rectal: Deferred Extremities: No calf tenderness, Normal capillary refill, Normal inspection, Normal range of motion, Non-tender, No pedal edema Musculoskeletal : Apperance: Normal Neurologic: Alert, loss prevention officer II-XII nml as Tested, No Motor Deficits, Normal Affect, Normal Mood, No Sensory Deficits Cerebellar Function: Normal Reflexes: Normal Skin: Dry, Normal Color, Warm Peripheral Pulses: 3+ Radial (R), 3+ Radial (L) Lymphatic: No Adenopathy Was a procedure done? Was a procedure done?: No Differential Dx Considerations may include: Alcohol abuse Drug use X-Ray, Labs, Meds, VS Vital Signs Date Time Temp Pulse Resp B/P (MAP) Pulse Ox O2 Delivery O2 Flow Rate FiO2 05/20/25 11:11 82 05/20/25 11:10 98.6 84 17 116/80 96 98.6 Lab Test 05/20/25 11:17 Range/Units Plasma/Serum Blood Alcohol 335.1 H <10 mg/dL Patient alert. Alcohol abuse pain He uses drugs. Vitals stable. Establish intravenous access. Was given fluids. Was given thiamine. Counseled patient on effects of drinking for 15 minutes. Denies suicidal homicidal ideation. Explained to the patient. Was told to follow up with his primary care physician. Was told to come back if there is any problem. Time of 1ST Reevaluation: 11:35 Reevaluation 1ST: Unchanged Patient Education/Counseling: Diagnosis, Treatment Family Education/Counseling: No Family Present SEPSIS Sepsis Screen Physician Orders Drug Screen (05/20/25 11:06) Electrocardigram (05/20/25 11:14) Vital Signs Date Time Temp Pulse Resp B/P (MAP) Pulse Ox O2 Delivery O2 Flow Rate FiO2 05/20/25 11:11 82 05/20/25 11:10 98.6 84 17 116/80 96 98.6 Departure 1 Departure Time of Disposition: 13:37 Impression: Primary Impression: Alcohol abuse Additional Impression: Alcohol intoxication Qualified Codes: F10.920 - Alcohol use, unspecified with intoxication, uncomplicated Disposition: 01 HOME / SELF CARE / HOMELESS Condition: Good Discharged With: Self Critical Care Note Critical Care Time?: No Stability Stability form required: No Heart Score Heart Score: Heart Score Response (Comments) Value History N/A 0 EKG N/A 0 Age N/A 0 Risk Factors N/A 0 Troponin N/A 0 Total 0 I personally scribed for GABRIELA CARDENAS MD ([email or web address]) on 05/20/25 at 11:07. Electronically submitted by Kyra Kerr ([email or web address]). GABRIELA CARDENAS MD May 20, 2025 11:07
[2025-05-20] MEDS: SODIUM CHLORIDE 0.9% 1,000 ML IV ONE (11:15)
[2025-05-20] MEDS: THIAMINE 100mg/ml INJ (200mg/2ml VIAL) IV ONE (18:40)
[2025-05-20 18:41] VITALS: BP 119/72; PULSE 96; RESP 12; TEMP 98.2; O2SAT 96
--- NOTE | 2025-05-22 07:13 | ECG ---
[facility] Test Date: 2025-05-20 Test Time: 11:11:51 Pat Name: OSWALDO SANTA Department: [facility] ED Patient ID: [facility]-[id number] Room: Gender: M Diet Consultant: JUAN : 1985 Requested By: GABRIELA CARDENAS Order Number: [id number] Reading MD: Steve Anderson Measurements Intervals [place] Rate: 82 P: 178 MI: 231 QRS: 95 QRSD: 101 T: 76 QT: 357 QTc: 417 Interpretive Statements Sinus or ectopic atrial rhythm Prolonged MI interval Borderline right axis deviation Left ventricular hypertrophy ST elev, probable normal early repol pattern Electronically Signed On 05-23-2025 18:15:14 PDT by Steve Anderson Please click the below link to view image of tracing.
== END 2025-05-21 07:46 | disposition left against medical advice (07) ==
LOC: EDUNIT# 11:02 → EDBD 11:02 → ER 11:10
DX: F10.120 Alcohol abuse with intoxication, uncomplicated (principal); F17.210 Nicotine dependence, cigarettes, uncomplicated; Z79.899 Other long term (current) drug therapy; Y90.9 Presence of alcohol in blood, level not specified
CPT/HCPCS: 36415; 80320; 82947; 93005; 96361; 96374; 99284; J3411; J7030

== ENCOUNTER 2025-05-28 11:02 | Emergency (ER) | payer MEDICAID ==
[~2025-05-28] VITALS: Ht 182.9 cm; Wt 73.0 kg
[2025-05-28 11:04] VITALS: BP 115/63; PULSE 101; RESP 15; TEMP 98; O2SAT 98
[2025-05-28] MEDS ORDERED: LACTATED RINGER'S 2,000 ML IV ONE (11:30)
== END 2025-05-28 11:29 | disposition left against medical advice (07) ==
LOC: EDBD 11:02 → ER 11:02
DX: R42 Dizziness and giddiness (principal); Z53.21 Procedure and treatment not carried out due to patient leaving prior to being seen by health care provider

== ENCOUNTER 2025-06-11 03:05 | Emergency (ER) | payer MEDICAID ==
[~2025-06-11] VITALS: Ht 182.9 cm; Wt 73.0 kg
[2025-06-11 03:05] VITALS: BP 127/73; PULSE 63; RESP 16; TEMP 97.3; O2SAT 99
--- NOTE | 2025-06-11 03:17 | ED.PDOC ---
Altered Mental Status HPI Comments 39-year-old male who came to ER via EMS for alcohol intoxication. Patient is homeless. Has been seen here multiple times for alcohol intoxication. Has a history of methamphetamine abuse as well. Patient was picked up at the parking lot of [facility] [place], intoxicated with alcohol. No information could be taken from the patient at this time of care Chief Complaint: ETOH Time Seen by MD: 03:17 Primary Care Provider: NONE Reviewed Notes: Security Patrol Officer Notes Allergies: Coded Allergies: NO KNOWN ALLERGIES (Unverified , 08/09/15) Information Source: Emergency Med Personnel Mode of Arrival: EMS Severity: Unable to Care for Self Timing: Hours Duration: Since onset Quality: Decreased Alertness, Change in Behavior Recent: Medication/Drug Abuse Past Medical History PAST MEDICAL HISTORY: Denies Surgical History: Denies all surgeries Family History Family History: Family hx of DM Social History Smoker: Cigarettes Alcohol: Heavy Drugs: Cocaine, Marijuana, Methamphetamine Lives In: Homeless Unable to Obtain due to: Other (Intoxicated alcohol) Physical Exam General Appearance: No Apparent Distress, Normal HEENT: Normal ENT Inspection, Pharynx Normal, TMs Normal Neck: Full Range of Motion, Non-Tender, Normal, Normal Inspection Respiratory: Chest Non-Tender, Lungs Clear, No Accessory Muscle Use, No Respiratory Distress, Normal Breath Sounds Cardiovascular: No Edema, No JVD, No Murmur, No Gallop, Normal Peripheral Pulses, Regular Rate/Rhythm Breast Exam: Deferred Gastrointestinal: No Organomegaly, Non Tender, No Pulsatile Mass, Normal Bowel Sounds, Soft Genitalia: Deferred Pelvic: Deferred Rectal: Deferred Extremities: No calf tenderness, Normal capillary refill, Normal inspection, Normal range of motion, Non-tender, No pedal edema Musculoskeletal : Apperance: Normal Neurologic: Alert, loan expeditor II-XII nml as Tested, No Motor Deficits, Normal Affect, Normal Mood, No Sensory Deficits Cerebellar Function: Normal Reflexes: Normal Skin: Dry, Normal Color, Warm Lymphatic: No Adenopathy Was a procedure done? Was a procedure done?: No Differential Diagnosis (ALOC) Differential Diagnosis: Dehydration, Hypoglycemia, Encephalopathy, Drug Overdose, ETOH Intoxication X-Ray, Labs, Meds, VS Vital Signs Date Time Temp Pulse Resp B/P (MAP) Pulse Ox O2 Delivery O2 Flow Rate FiO2 06/11/25 03:05 97.3 63 16 127/73 99 97.3 Lab Test 06/11/25 03:25 Range/Units White Blood Count 6.0 4.4-10.8 10^3/uL Red Blood Count 4.64 4.5-5.90 10^6/uL Hemoglobin 15.6 13.5-17.5 g/dL Hematocrit 45.3 41.0-53.0 % Mean Corpuscular Volume 97.7 80.0-100.0 fL Mean Corpuscular Hemoglobin 33.6 H 28.0-32.0 pg Mean Corpuscular Hemoglobin Concent 34.4 32.0-36.0 g/dL Red Cell Distribution Width 14.5 H 11.8-14.3 % Platelet Count 329 140-450 10^3/uL Mean Platelet Volume 7.8 6.9-10.8 fL Neutrophils (%) (Auto) 51.6 37.0-80.0 % Lymphocytes (%) (Auto) 36.5 10.0-50.0 % Monocytes (%) (Auto) 9.3 0.0-12.0 % Eosinophils (%) (Auto) 1.5 0.0-7.0 % Basophils (%) (Auto) 1.1 0.0-2.0 % Neutrophils # (Auto) 3.1 1.6-8.6 10 ^3/uL Lymphocytes # (Auto) 2.2 0.4-5.4 10 ^3/uL Monocytes # (Auto) 0.6 0-1.3 10 ^3/uL Eosinophils # (Auto) 0.1 0-0.8 10 ^3/uL Basophils # (Auto) 0.1 0-0.2 10 ^3/uL Nucleated Red Blood Cells 0.1 % Sodium Level Pending Potassium Level Pending Chloride Level Pending Carbon Dioxide Level Pending Anion Gap Pending Blood Urea Nitrogen Pending Creatinine Pending Glomerular Filtration Rate Calc Pending BUN/Creatinine Ratio Pending Serum Glucose Pending Calcium Level Pending Total Bilirubin Pending Aspartate Amino Transferase (AST) Pending Alanine Aminotransferase (ALT) Pending Alkaline Phosphatase Pending Total Protein Pending Albumin Pending Plasma/Serum Blood Alcohol Pending Time of 1ST Reevaluation: 03:15 Reevaluation 1ST: Unchanged Patient Education/Counseling: Diagnosis, Treatment Family Education/Counseling: No Family Present SEPSIS Sepsis Screen Physician Orders Comprehensive Metabolic Panel (06/11/25 03:13) Blood Alcohol (8/30/25 03:13) Vital Signs Date Time Temp Pulse Resp B/P (MAP) Pulse Ox O2 Delivery O2 Flow Rate FiO2 06/11/25 03:05 97.3 63 16 127/73 99 97.3 Laboratory Tests Test 06/11/25 03:25 White Blood Count 6.0 10^3/uL (4.4-10.8) Departure 1 Departure Time of Disposition: 04:00 Impression: Primary Impression: Alcohol abuse Disposition: LEFT AWOL/ELOPED Condition: Fair Discharged With: Self Critical Care Note Critical Care Time?: No Stability Stability form required: No Heart Score Heart Score: Heart Score Response (Comments) Value History N/A 0 EKG N/A 0 Age N/A 0 Risk Factors N/A 0 Troponin N/A 0 Total 0 I personally scribed for BRETT WHITAKER MD ([email or web address]) on 06/11/25 at 03:17. Electronically submitted by Eric Zepeda ([email or web address]). BRETT WHITAKER MD Jun 11, 2025 03:17
[2025-06-11 03:42] LABS: Hematocrit 45.3 % (41.0-53.0); Hemoglobin 15.6 g/dL (13.5-17.5); Mean Corpuscular Hemoglobin 33.6 pg (28.0-32.0); Mean Corpuscular Volume 97.7 fL (80.0-100.0); Nucleated Red Blood Cells % 0.1 %
[2025-06-11 04:02] LABS: Alanine Aminotransferase 38 U/L (7-40); Albumin 4.6 g/dL (3.2-4.8); Alkaline Phosphatase 85 U/L (46-116); Anion Gap 11 (5-15); BUN/Creatinine Ratio 11.8 (10.0-20.0); Calcium 9.0 mg/dL (8.7-10.4); Carbon Dioxide 26 mmol/L (20-31); Chloride 106 mmol/L (98-107); Glucose 98 mg/dL (74-106); Potassium 3.5 mmol/L (3.5-5.1); Sodium 143 mmol/L (136-145); Total Protein 7.3 g/dL (5.7-8.2)
[2025-06-11 04:49] LABS: Bilirubin, Total 0.3 mg/dL (0.2-1.0); Blood Urea Nitrogen 8 mg/dL (9-23)
== END 2025-06-11 05:06 | disposition left against medical advice (07) ==
LOC: ER 03:05 → EDBD 03:05 → ER 05:06
DX: F10.129 Alcohol abuse with intoxication, unspecified (principal); F17.210 Nicotine dependence, cigarettes, uncomplicated; Z59.00 Homelessness unspecified; Z79.899 Other long term (current) drug therapy; Y90.9 Presence of alcohol in blood, level not specified
CPT/HCPCS: 36415; 80053; 80320; 85025

== ENCOUNTER 2025-07-15 13:48 | Emergency (ER) | payer MEDICAID ==
[~2025-07-15] VITALS: Ht 177.8 cm; Wt 72.7 kg
[2025-07-15 13:52] VITALS: BP 130/79; PULSE 82; RESP 16; TEMP 97.8; O2SAT 100
== END 2025-07-15 14:54 | disposition left against medical advice (07) ==
LOC: ER 13:48 → EDBD 13:48 → ER 14:54
DX: M25.561 Pain in right knee (principal); Z53.21 Procedure and treatment not carried out due to patient leaving prior to being seen by health care provider

== ENCOUNTER 2025-07-15 16:44 | Emergency (ER) | payer MEDICAID ==
[~2025-07-15] VITALS: Ht 188 cm; Wt 72.1 kg
[2025-07-15 16:54] VITALS: BP 113/75; PULSE 83; RESP 17; TEMP 98.1; O2SAT 98
== END 2025-07-15 18:36 | disposition left against medical advice (07) ==
LOC: ER 16:47
DX: M79.604 Pain in right leg (principal); Z53.21 Procedure and treatment not carried out due to patient leaving prior to being seen by health care provider